=== PATIENT | female | born 1965 | race Caucasian/White ===

== ENCOUNTER 2018-06-20 17:24 | Observation (INO) | payer OTHER, SELFPAY ==
[2018-06-20 17:30] VITALS: BP 130/87; PULSE 76; RESP 18; O2SAT 98; BMI 51.5
[2018-06-20 18:02] LABS: Add Manual Diff / Slide Review NO; Basophils Percent Auto 1.1 % (0-2); Eosinophils Percent Auto 0.4 % (2-4); Hemoglobin 12.7 g/dL (12.0-16.0); Lymphocytes Percent Auto 19.1 % (25-40); Mean Corpuscular HGB Conc 34.2 % (30-36); Mean Corpuscular Hemoglobin 29.2 PG (26-34); Mean Corpuscular Volume 85.4 fL (80-100); Monocytes Percent Auto 7.5 % (3-14); Neutrophils Absolute Auto 7500 /uL (3000-5900); Neutrophils Percent Auto 71.9 % (50-75); Platelet Count 275 X10^3/uL (150-400); Red Blood Cell Count 4.34 X10^6/uL (4.0-5.2); Red Cell Distribution Width 14.1 % (11.6-14.8); White Blood Cell Count 10.4 X10^3/uL (4.5-11.0)
[2018-06-20 18:21] LABS: Alanine Aminotransferase 44 IU/L (9-52); Albumin 4.5 g/dL (3.5-5.0); Albumin Globulin Ratio 1.5 (1.0-2.8); Alkaline Phosphatase 99 U/L (38-126); Aspartate Aminotransferase 35 IU/L (14-36); BUN Creatinine Ratio 12.2 (6-22); Blood Urea Nitrogen 11 mg/dL (7-17); Calcium 9.4 mg/dL (8.4-10.2); Carbon Dioxide 26 mmol/L (22-32); Chloride 100 mmol/L (98-107); Estimated Glomerular Filt Rate > 60.0 mL/min (>60); Globulin 3.1 g/dL (1.7-4.1); Glucose 116 mg/dL (70-100); HEMOLYSIS 25 (0-50); Lipase 12 U/L (23-300); Potassium 3.9 mmol/L (3.4-5.1); Sodium 140 mmol/L (137-145); Total Protein 7.6 g/dL (6.3-8.2)
--- NOTE | 2018-06-20 18:28 | DI.CT.S_ITS ---
PROCEDURE: CT ABDOMEN PELVIS WO CON INDICATIONS: severe RLQ pain, with guarding TECHNIQUE: Noncontrast 5 mm thick sections acquired from the diaphragms to the symphysis. 5 mm coronal and sagittal reformats were then performed. For radiation dose reduction, the following was used: automated exposure control, adjustment of mA and/or kV according to patient size. COMPARISON: None. FINDINGS: Image quality: Excellent. ABDOMEN: Lung bases: Lung bases are clear. Heart size is normal. Solid organs: Liver is mildly enlarged in size and prominently fatty infiltrated as was previously the case. Gallbladder is been previously resected. Pancreas is normal in contours. Spleen is normal in size. No adrenal nodules. Kidneys are normal in size, without hydronephrosis or nephrolithiasis. Peritoneum and bowel: Unenhanced bowel loops demonstrate normal wall thickness and caliber. No free fluid or air. Nodes and vessels: No retroperitoneal or mesenteric adenopathy by size criteria. Aorta and inferior vena cava are normal in caliber. Miscellaneous: No ventral hernias. PELVIS: Genitourinary: Bladder wall thickness is normal. Miscellaneous: No inguinal hernias or adenopathy. At the right lower quadrant the appendix is abnormal, with increased dilatation when compared to the prior CT scan from 03/15/17 when the appendix had appeared normal. Its transverse dimension was 6 mm previously and now is 11 mm, in the same area. It previously had contain gas, and now is free of internal gas content. Additionally, most convincingly, is the presence of periappendiceal edema there is mild in overall severity but definite. An appendicolith is not seen. Mild thickening of the adjacent fascial layer of the peritoneum has developed with reference to the prior study when it had appeared normal. Bones: No suspicious bony lesions. No vertebral body compression fractures. IMPRESSION: Mild acute appendicitis without periappendiceal abscess. Prior cholecystectomy. Prominent fatty infiltration throughout the liver. Dictated by: Rc Eason M.D. on 06/20/2018 at 21:35 Approved by: Rc Eason M.D. on 06/20/2018 at 21:40
[2018-06-20] MEDS: ONDANSETRON 4 MG/2 ML INJ IV (18:43)
[2018-06-20] MEDS: HYDROMORPHONE 1 MG INJ 0.5 MG IV (18:44)
[2018-06-20] MEDS: SODIUM CHLORIDE 0.9% 1,000 ML 1000 ML IV (18:45)
[2018-06-20 18:54] VITALS: BP 123/80; PULSE 64; RESP 16; O2SAT 98
--- NOTE | 2018-06-20 18:58 | ED.ABDPAIN ---
HPI - Abdominal Pain General Chief Complaint: Abdominal Pain Stated Complaint: RIGHT LOWER ABDOMINAL PAIN Time Seen by Provider: 06/20/18 18:00 Source: patient and family Mode of arrival: ambulatory Limitations: no limitations History of Present Illness HPI narrative: 52-year-old female presents to the emergency department with significant other in the chief complaint of gradually worsening right lower quadrant pain since yesterday. Her symptoms started with generalized abdominal discomfort and nausea. Over the course of the day her pain has become much more intense and localized in her right lower quadrant. She has associated nausea and a decreased appetite. She has no measured fever but has perception of fever. Her pain is worse with motion and improves with rest. She last had solid foods at noon and had some tea at 3:00 p.m.. MD complaint: abdominal pain Onset (ago): day(s) Pain Consistency: constant Location: RLQ Severity: moderate Quality: cramping and stabbing Radiation: RLQ Migration to: no migration Relieving factors: rest Exacerbating factors: movement Associated symptoms: nausea and anorexia Related Data Home Medications Medication Instructions Recorded Confirmed atorvastatin 10 mg PO BEDTIME 06/21/18 06/21/18 bupropion HCl [Wellbutrin XL] 150 mg PO DAILY 06/21/18 06/21/18 cetirizine [Zyrtec] 10 mg PO DAILY 06/21/18 06/21/18 cholecalciferol (vitamin D3) 1,000 unit PO BID 06/21/18 06/21/18 [Vitamin D3] clonazepam [Klonopin] 0.5 mg PO BID PRN 06/21/18 06/21/18 duloxetine [Cymbalta] 60 mg PO DAILY 06/21/18 06/21/18 metoprolol succinate 50 mg PO DAILY 06/21/18 06/21/18 omeprazole magnesium [Prilosec OTC] 20 mg PO BID 06/21/18 06/21/18 pseudoephedrine HCl [Sudafed 12 120 mg PO Q12H 06/21/18 06/21/18 Hour] trazodone 100 mg PO DAILY 06/21/18 06/21/18 zolpidem 10 mg PO BEDTIME PRN 06/21/18 06/21/18 Allergies Allergy/AdvReac Type Severity Reaction Status Date / Time hydrocodone [HYDROCODONE] Allergy Unknown Swelling Verified 06/20/18 17:36 of Lip/Tongue/Throat sulfamethoxazole Allergy Unknown Swelling Verified 06/20/18 17:36 [From BACTRIM] of Lip/Tongue/Throat trimethoprim [From BACTRIM] Allergy Unknown Swelling Verified 06/20/18 17:36 of Lip/Tongue/Throat Review of Systems Review of Systems All systems reviewed & are unremarkable except as noted in HPI and below Constitutional Denies chills, Reports fever(s), Denies lethargy and Denies weakness Eyes Denies change in vision, Denies eye discharge, Denies irritation and Denies loss of vision ENT Ears, Nose, Mouth, and Throat: Denies change in voice, Denies neck pain and Denies sore throat Cardiovascular Denies chest pain, Denies irregular heart rhythm, Denies lightheadedness, Denies palpitations, Denies dyspnea, Denies dyspnea on exertion and Denies orthopnea Respiratory Denies cough, Denies dyspnea, Denies dyspnea on exertion and Denies wheezing Gastrointestinal Gastrointestinal: Reports abdominal pain, Denies change in bowel habits, Denies diarrhea, Reports nausea and Denies vomiting Genitourinary Denies hematuria, Denies flank pain, Denies urinary incontinence and Denies urinary urgency Musculoskeletal Denies neck pain Integumentary/Breasts Denies pruritus, Denies erythema, Denies rash and Denies wounds Neurologic Denies confusion, Denies loss of vision and Denies weakness Psychiatric Denies anxiety, Denies confusion, Denies depression, Denies homicidal ideation and Denies suicidal ideation Endocrine Denies palpitations Hematologic/Lymphatic Denies easy bruising Allergic/Immunologic Denies wheezing PFSH Social History Smoking Status: Former smoker Exam Narrative Exam Narrative: 52-year-old female appears unwell, clutching her right lower quadrant, obviously in pain Initial Vital Signs Initial Vital Signs: Vital Signs Pulse Rate 76 06/20/18 17:30 Respiratory Rate 18 06/20/18 17:30 Blood Pressure 130/87 H 06/20/18 17:30 Pulse Oximetry 98 06/20/18 17:30 Const General: cooperative, well developed and acute distress Nutritional Appearance: obese Orientation: alert, awake, oriented x3 and not confused HENMT Head: normocephalic and atraumatic Ears: external ears normal and TM's normal bilaterally Nose: external nose normal and No nasal discharge Face and sinus: sinuses nontender, face symmetric, no sinus tenderness and No dry mucous membranes Mouth: oral mucosae normal and moist mucous membranes Teeth and gingiva: dentition normal Throat: tonsils normal and uvula midline Neck Neck: normal visual inspection, trachea midline, No lymphadenopathy, No midline deformity and No JVD Lymphatic: No lymphedema Resp Effort & Inspection: normal respiratory effort, able to speak in complete sentences, no respiratory distress and no use of accessory muscles Auscultation: clear to auscultation bilaterally, no rales, no rhonchi and no wheezes GI Inspection: non-distended Palpation: soft, no hepatosplenomegaly, guarding, No pulsatile mass and tender Auscultation: normal bowel sounds Other: Positive Rovsing's, localized peritonitis and right lower quadrant, mild rebound Skin General: no rashes or lesions noted, No jaundice and No petechiae Neuro General: alert, oriented x3, gait normal and no focal motor deficits Speech: speech normal Extrem General: full ROM, no clubbing, cyanosis or edema, no pedal edema and no calf tenderness Course Decision to Admit Date: 06/20/18 Decision to Admit time: 21:40 Orders Ordered: ED Orders 06/20/18 17:55 Complete Blood Count AUTO DIFF Stat Comprehensive Metabolic Panel Stat Lipase Stat 06/20/18 18:28 CT abdomen pelvis wo con Stat Hydromorphone HCl (Dilaudid) 1 mg SUBCUT Q4H PRN PRN Reason: Pain, Severe (7-10) Last Admin: 06/20/18 23:07 Dose: 1 mg Admin: 06/20/18 21:18 Dose: 1 mg Sodium Chloride (Normal Saline 0.9%) 1,000 mls @ 150 mls/hr IV CONT WALKER Last Admin: 06/20/18 19:48 Dose: Not Given Discontinued Medications Hydromorphone HCl (Dilaudid) 0.5 mg IV NOW ONE Stop: 06/20/18 18:28 Last Admin: 06/20/18 18:44 Dose: 0.5 mg Sodium Chloride (Normal Saline 0.9%) 1,000 mls @ 1,000 mls/hr IV BOLUS ONE Stop: 06/20/18 19:26 Last Infusion: 06/20/18 21:20 Dose: 0 mls/hr Admin: 06/20/18 18:45 Dose: 1,000 mls/hr Ondansetron HCl (Zofran) 4 mg IV NOW ONE Stop: 06/20/18 18:28 Last Admin: 06/20/18 18:43 Dose: 4 mg Reevaluation(s) Reevaluation #1: Patient's pain is improved with subcu administration of Dilaudid. She has a very difficult IV stick and all nurses in department have attempted, our ultrasound trained nurse even made an attempt. She is not critically ill nor crashing and therefore not a candidate for a central line or IO. Decision to call the PICC team made after discussion with on-call surgeon whom states he will take to the OR tomorrow Consultations Consultation #1: Dr. Rodriguez will take to the OR tomorrow, recommend cefotetan 2 g Q 12, Zofran, Dilaudid GLOBAL PROCESS OWNER and lactated ringers at 125mL/hr Vital Signs - 8 hr 06/20/18 17:30 06/20/18 18:54 06/20/18 21:06 Temperature Pulse Rate 76 64 71 Respiratory Rate 18 16 18 Blood Pressure 130/87 H Blood Pressure [Right Arm] 123/80 H 116/64 Pulse Oximetry 98 98 97 06/20/18 22:05 06/21/18 00:19 Temperature 98.8 F 98.3 F Pulse Rate 61 Respiratory Rate 16 Blood Pressure Blood Pressure [Right Arm] 121/69 H Pulse Oximetry 97 MDM - Abdominal Pain Lab Data Result diagrams: 06/20/18 17:55 06/20/18 17:55 Lab Results 06/20/18 06/20/18 Range/Units 17:55 17:55 WBC 10.4 (4.5-11.0) X10^3/uL RBC 4.34 (4.0-5.2) X10^6/uL Hgb 12.7 (12.0-16.0) g/dL Hct 37.0 (36-46) % MCV 85.4 (80-100) fL MCH 29.2 (26-34) PG MCHC 34.2 (30-36) % RDW 14.1 (11.6-14.8) % Plt Count 275 (150-400) X10^3/uL Neut % (Auto) 71.9 (50-75) % Lymph % (Auto) 19.1 L (25-40) % [place] % (Auto) 7.5 (3-14) % Eos % (Auto) 0.4 L (2-4) % Baso % (Auto) 1.1 (0-2) % Neut # (Auto) 7500 H (1431-6776) /uL Sodium 140 (137-145) mmol/L Potassium 3.9 (3.4-5.1) mmol/L Chloride 100 (98-107) mmol/L Carbon Dioxide 26 (22-32) mmol/L BUN 11 (7-17) mg/dL Creatinine 0.90 (0.52-1.04) mg/dL Estimated GFR > 60.0 (>60) mL/min BUN/Creatinine Ratio 12.2 (6-22) Glucose 116 H (70-100) mg/dL Calcium 9.4 (8.4-10.2) mg/dL Total Bilirubin 1.0 (0.2-1.3) mg/dL AST 35 (14-36) IU/L ALT 44 (9-52) IU/L Alkaline Phosphatase 99 (38-126) U/L Total Protein 7.6 (6.3-8.2) g/dL Albumin 4.5 (3.5-5.0) g/dL Globulin 3.1 (1.7-4.1) g/dL Albumin/Globulin Ratio 1.5 (1.0-2.8) Lipase 12 L (23-300) U/L Discharge Plan Departure Patient Disposition: Admitted As Inpatient Clinical Impression: Acute appendicitis Interventions: ED Discharge Assessment Last Done: 06/20/18 23:02 Admit Date/Time: 06/20/18 23:58 Admit Provider: Armand Rodriguez
--- NOTE | 2018-06-20 20:15 | PC.NURSE ---
Qiana ROBLERO used ultrasound to try and get IV access per provider. Not successful. Provider aware that pt has no IV access . No new orders at this time. fluids paused. Pt appears in no acute distress at this time.
[2018-06-20 21:06] VITALS: BP 116/64; PULSE 71; RESP 18; O2SAT 97
[2018-06-20] MEDS: HYDROMORPHONE 2 MG INJ 1 MG SUBCUT ×2 (21:18→23:07)
--- NOTE | 2018-06-20 21:18 | PC.NURSE ---
confirmed dilaudid sub Q injection site with Deborah Chaudhary Rn
[2018-06-20 22:05] VITALS: TEMP 37.1
--- NOTE | 2018-06-20 22:20 | PC.NURSE ---
PICC TEAM CALLED. PER PROVIDER.
--- NOTE | 2018-06-20 23:02 | PC.NURSE ---
report given to chacho ROBLERO
[2018-06-21] VITALS (18 sets, daily range): BP systolic 100–135; BP diastolic 59–81; PULSE 60–76; RESP 9–19; TEMP 36.2–36.9; O2SAT 91–100; BMI 51.5; BMI 50.3
--- NOTE | 2018-06-21 | PATH_ITS ---
[facility] Accession Number: [id number] . 01 Material submitted: . APPENDIX . 02 Diagnosis: Appendix: Acute appendicitis. [facility]/06/23/2018 . 02 Electronically signed: . Gerald Domingo MD, Pathologist NPI- [id number] . 01 Gross description: . Received in formalin, labeled appendix, is an intact appendix (length-3.8 cm, diameter-1.3 cm) with ferreira-pink, smooth, shiny serosa with attached mesoappendix (up to 1.8 cm in depth). The resection margin is received stapled. The lumen contains red-brown, solid, soft material. The wall is up to 0.5 cm thick. No nodules, masses, or lesions are identified. The resection margin is inked black. Section code: (A1) resection margin en face and three additional business services representative serial sections; (A2) one-half of the bivalved tip. ([id number]) /FRR . 02 Pathologist provided ICD-10: K35.80 . 02 CPT . 202087 Performed at: 01 [facility] [address] [id number] MD Dandy Schuler MD Phone: [phone] Performed at: [facility] [address] [place], [place] [id number] MD Colby Sapp MD Phone: [phone]
--- NOTE | 2018-06-21 00:32 | PC.NURSE ---
RN here to place PICC.
[2018-06-21] MEDS: LACTATED RINGERS 1,000 ML 125 ML IV (02:18)
[2018-06-21] MEDS: CEFOTETAN 2 GM/50 ML PIGGYBACK IV (02:35)
[2018-06-21] MEDS: HYDROMORPHONE PCA 6 MG/30 ML PCA.VIAL IV (06:45)
--- NOTE | 2018-06-21 07:56 | PM.HP.1 ---
History of Present Illness Date Patient Seen: 06/21/18 Time Patient Seen: 05:56 Chief complaint: RIGHT LOWER ABDOMINAL PAIN Narrative: 52-year-old morbidly obese female who presented the emergency department with a 48 hr history of progressive abdominal pain initially located diffusely but then later localized to the right lower quadrant. She is currently complaining of focal right lower quadrant abdominal pain that is described as sharp but nonradiating. Pain is essentially unrelenting but is currently relieved with Dilaudid GRADALL OPERATOR. Denies subjective fever or chills. No nausea or vomiting but she has been anorexic since onset of her symptoms. No dysuria. She has had no change in her bowel habits otherwise reports a normal stool just prior to the onset of her symptoms. She is currently passing flatus without issues. Her pain has become more severe in the last 12 hr or so with exacerbation during activity of any type, including ambulation. Patient History Medical History Anxiety disorder (Acute) Atrial fibrillation with controlled ventricular response (Acute) Depression determined by examination (Acute) Essential hypertension (Acute) H/O gastroesophageal reflux (GERD) (Acute) History of cholelithiasis (Acute) Morbid obesity with BMI of 50.0-59.9, adult (Acute) Obstructive sleep apnea on CPAP (Acute) Osteoarthritis involving multiple joints on both sides of body (Acute) Surgical History Status post laparoscopic Katerin fundoplication (Acute) Status post laparoscopic cholecystectomy (Acute) Status post right rotator cuff repair (Acute) Status post total bilateral knee replacement (Acute) Family & Social History Family History: Reviewed 06/21/18 by Armand Rodriguez MD Social History: household members spouse Prior Living Arrangements House Safety & Behavioral: Feels Safe in Current Yes Environment Been Physically Hurt or No Threatened By a Person Suicidal Ideation Description None Suicide Plan Description No Plan Tobacco & Substance use: Smoking Status Former smoker alcohol intake frequency holiday/special occasion Substance Use Type does not use Meds Home Medications Medication Instructions Recorded Confirmed Type atorvastatin 10 mg PO BEDTIME 06/21/18 06/21/18 History bupropion HCl [Wellbutrin XL] 150 mg PO DAILY 06/21/18 06/21/18 History cetirizine [Zyrtec] 10 mg PO DAILY 06/21/18 06/21/18 History cholecalciferol (vitamin D3) 1,000 unit PO BID 06/21/18 06/21/18 History [Vitamin D3] clonazepam [Klonopin] 0.5 mg PO BID PRN 06/21/18 06/21/18 History duloxetine [Cymbalta] 60 mg PO DAILY 06/21/18 06/21/18 History metoprolol succinate 50 mg PO DAILY 06/21/18 06/21/18 History omeprazole magnesium [Prilosec OTC] 20 mg PO BID 06/21/18 06/21/18 History pseudoephedrine HCl [Sudafed 12 120 mg PO Q12H 06/21/18 06/21/18 History Hour] trazodone 100 mg PO DAILY 06/21/18 06/21/18 History zolpidem 10 mg PO BEDTIME PRN 06/21/18 06/21/18 History Allergies Allergy/AdvReac Type Severity Reaction Status Date / Time hydrocodone [HYDROCODONE] Allergy Unknown Swelling Verified 06/20/18 17:36 of Lip/Tongue/Throat sulfamethoxazole Allergy Unknown Swelling Verified 06/20/18 17:36 [From BACTRIM] of Lip/Tongue/Throat trimethoprim [From BACTRIM] Allergy Unknown Swelling Verified 06/20/18 17:36 of Lip/Tongue/Throat Review of Systems Review of Systems All systems reviewed & are unremarkable except as noted in HPI and below Exam Vital Signs (past 8 hours): - 06/21/18 00:19 06/21/18 02:00 06/21/18 07:19 Temperature 98.3 F 97.1 F L 98.1 F Pulse Rate 61 60 64 Respiratory Rate 16 16 16 Blood Pressure 118/70 100/63 Blood Pressure [Right Arm] 121/69 H Pulse Oximetry 97 95 93 Oxygen Delivery Method Room Air Narrative Exam Narrative: obese female lying in bed in no acute distress. Alert oriented x3. Family is at the bedside. Afebrile since admission. Blood pressure and heart rate are normal. irregular rhythm clear to auscultation Abdomen is obese but soft and nondistended. However, she is focally tender at McBurney's point with obvious guarding. No masses. No Rovsing sign. She is nontender elsewhere in the abdomen. Extremities show no clubbing or cyanosis Objective Labs Result Diagrams: 06/20/18 17:55 06/20/18 17:55 Labs: Laboratory Results - last 24 hr 06/20/18 06/20/18 17:55 17:55 WBC 10.4 RBC 4.34 Hgb 12.7 Hct 37.0 MCV 85.4 MCH 29.2 MCHC 34.2 RDW 14.1 Plt Count 275 Neut % (Auto) 71.9 Lymph % (Auto) 19.1 L [place] % (Auto) 7.5 Eos % (Auto) 0.4 L Baso % (Auto) 1.1 Neut # (Auto) 7500 H Sodium 140 Potassium 3.9 Chloride 100 Carbon Dioxide 26 BUN 11 Creatinine 0.90 Estimated GFR > 60.0 BUN/Creatinine Ratio 12.2 Glucose 116 H Calcium 9.4 Total Bilirubin 1.0 AST 35 ALT 44 Alkaline Phosphatase 99 Total Protein 7.6 Albumin 4.5 Globulin 3.1 Albumin/Globulin Ratio 1.5 Lipase 12 L I have personally reviewed her CT scan of the abdomen pelvis done in the emergency department. No free fluid. No free air. No lymphadenopathy or masses. Appendix is enlarged to 1.1 cm with surrounding mild inflammation. Assessment & Plan Plan: Assessment/Plan Narrative: 52-year-old female with acute appendicitis by examination, history, and radiographic criteria. I discussed my impression findings with the patient and her family in detail. I recommend laparoscopic appendectomy later this morning. Technical details of the operation were discussed. Anticipated hospitalization and recovery times along with wound healing times were also reviewed. Risks, benefits, alternatives were explained. Risks including but not limited to anesthesia, bleeding, infection, abscess, pain, need for drains, need to convert open procedure, poor wound healing, normal appendix, bladder injury, colon injury, appendiceal stump leak, small-bowel injury, right ureter injury, and need for further major abdominal surgery were all discussed in detail. All questions were answered to her satisfaction, and she voiced understanding. Consent was placed on the chart. We will proceed as above. Quality VTE Deep Vein Thrombosis/Pulmonary Embolism Present on Admission: No
--- NOTE | 2018-06-21 08:25 | PC.NURSE ---
Pt taken to OR
[2018-06-21] MEDS: LACTATED RINGERS 1,000 ML 42 ML IV (08:30)
--- NOTE | 2018-06-21 09:32 | PM.PREOP ---
Pre-operative Note Interval Note Pre-op Check: Yes History & Physical Reviewed by Physician, Yes Exam Performed and Yes History & Physical exam performed today by Physician Changes: No H&P completed within 30 days and has changed as indicated here:: Patient seen and examined earlier this morning. History physical examination is documented and placed on the chart today. No changes since this morning. Proceed with laparoscopic appendectomy as planned.
[2018-06-21] MEDS: CEFOTETAN 1 GM/50 ML PIGGYBACK IV (10:10)
--- NOTE | 2018-06-21 10:24 | SUR.OPER ---
Supine on padded OR bed, head on pillow, arms secured on padded arm boards at <90 degrees abduction, legs uncrossed, safety belt at thigh, tape over blanket over lower legs.
[2018-06-21] MEDS: LIDOCAINE 1% W/EPI INJ 20 ML INJ (10:34)
[2018-06-21] MEDS: fentaNYL 100 MCG/2 ML INJ 50 MCG IV (11:34)
[2018-06-21] MEDS: ONDANSETRON 4 MG/2 ML INJ IV ×2 (11:35→21:10)
--- NOTE | 2018-06-21 11:37 | P.OP_ITS ---
Operative Date/Time/Diagnoses Date of procedure: 06/21/18 Time of procedure: 11:30 Pre-op diagnosis: acute appendicitis Post-op diagnosis: same Procedure & Clinicians Procedure: laparoscopic appendectomy Same procedure as scheduled: Yes Indications: 52-year-old morbidly obese female who presented with progressive right lower quadrant abdominal pain. Examination and evaluation were consistent with acute appendicitis. Laparoscopic appendectomy was recommended. Surgeon: Armand Rodriguez Click Yes if Unassisted: Yes Anesthesia Type: General Operative Notes Findings: 1. adhesions from the cecum and ascending colon to the right lateral abdominal wall consistent with prior inflammatory process 2. Mildly inflamed and thickened appendix 3. mild hepatomegaly consistent with fatty infiltration of the liver 4. No evidence of free fluid or abscess 5. otherwise grossly normal appearing small bowel, omentum, and colon within the limits of laparoscopic visualization Closure Type: primary Specimen(s): other ( appendix) Implants & Drains: none Applied: catheter ( Villalobos catheter to decompress the urinary bladder removed at end of case) Estimated Blood Loss (mL): 30 Blood products transfused: none Procedure in detail: after obtaining informed consent the patient was brought to the operating room and placed supine on the table. After satisfactory induction of anesthesia a Villalobos catheter was inserted to decompress the urinary bladder. Abdomen was prepped and draped in usual sterile fashion. A SCOAP time -out was performed per standard protocol. Combination of 1% lidocaine with 1 100,000 epinephrine and 0.5% plain Marcaine was injected in the skin and subcutaneous tissue at the planned incision sites for postoperative analgesia. Attention was initially turned to placement of a trocar at the supraumbilical region where a vertical midline incision for a distance of approximately 3 cm was created with 11 scalpel blade. Blunt dissection revealed the rectus fascia which was divided in the midline with 11. Scalpel blade. Cristian clamps were used to secure the fascia bilaterally and elevated into the operative field. Two individual interrupted 0 Vicryl sutures were placed superiorly and inferiorly to secure the fascia. Underlying peritoneum was visualized and entered bluntly with a Viky clamp. Blunt 12 mm Bautista trocar was then inserted and a carbon dioxide pneumoperitoneum was created. Abdomen was visually explored with a 30 degree 5 mm laparoscoped. Findings are as above. Under direct laparoscopic visualization 2 individual 5 mm trocars were placed. One was placed in the right lower quadrant and the other in the right upper quadrant region. Sven graspers were used to manipulate the bowel after rotating the patient slightly to her left. Adhesions along the cecum and ascending colon were taken down sharply with scissors. Hemostasis was verified. The base of the appendix was then identified in a somewhat retrocecal position. Appendix was then also identified and elevated into the operative field after blunt dissection with the graspers. [place] dissector was employed to create an avascular window between the base of the appendix and mesoappendix along the junction of the appendix at the cecum. Endo-REHANA 45 mm stapler with tissue load was then placed across the base of the appendix and applied to divide the appendix at that level. A 2nd application of the endoscopic stapler using a vascular load was applied to divide the mesoappendix. Specimen was placed in an endo-pouch and retrieved through the umbilical port site and sent for permanent section. Previously applied staple lines were then meticulously examined laparoscopically and noted to be hemostatic. No evidence of leakage at the cecum. I should note that during the application of the staple device each time great care was taken to avoid injury to adjacent structures in the area was meticulously examined prior to deploying the hilda. Right lower quadrant was irrigated with copious amounts of sterile saline solution and suction from the abdomen. Irrigant was noted to be clear. Hemostasis was once again noted. Staple lines were again examined and noted to be intact with no leakage or hemorrhage. No other pathology was identified as above. Therefore instruments and trocars were removed under direct visualization. Hemostasis was verified. Carbon dioxide was evacuated. Fascia at the umbilical site was closed with the previously placed 0 Vicryl sutures. Skin at all 3 incisions was then closed in a subcuticular fashion with running 4 0 Monocryl suture. Dermal adhesive was applied to the skin. Anesthesia was reversed and the patient extubated in the operating room. She was taken recovery in stable condition. Complications: none Condition: stable Disposition: PACU Plan for aftercare: 1. return to surgical floor for ongoing convalescence
[2018-06-21] MEDS: METOPROLOL ER 50 MG TABLET PO (13:49)
[2018-06-21] MEDS: DULOXETINE 30 MG CAPSULE 60 MG PO (13:50)
[2018-06-21] MEDS: OXYCODONE IR 5 MG TABLET PO ×2 (13:50→18:06)
[2018-06-21] MEDS: buPROPion XL 150 MG TAB PO (13:50)
[2018-06-21] MEDS: LACTATED RINGERS 1,000 ML 84 ML IV (13:51)
--- NOTE | 2018-06-21 14:14 | PC.NURSE ---
Pt back from OR 1330, alert, oriented rates pain to right upper abdomen 5/10, given 5mg oxycodone. Reports slight nausea. No antiemetic given at this time, medicated in the PACU. Scd's on, spouse at bedside.
--- NOTE | 2018-06-21 14:26 | CM.DANOTE ---
DCP/Assessment: Reviewed chart. Patient is a 52yr old female admitted under OBS status with abd pain. Patient underwent appendectomy today. PCP listed is SANA Joyce. Primary payor is 1)[facility]. Met with patient and significant other/Catie at bedside explained CM/SW role. Patient known to [employer] because she is employed at [employer]. Patient reports that she is completely I in all ADL's. Patient hopes to go home tomorrow. At this time there are no identified d/c planning needs. P: Home with supportive spouse when medically stable. MIRIAM Beverly
[2018-06-21] MEDS: ACETAMINOPHEN 325 MG TABLET 650 MG PO (18:10)
[2018-06-21] MEDS: ATORVASTATIN 10 MG TABLET PO (21:10)
[2018-06-21] MEDS: CHOLECALCIFEROL (VITAMIN D3) 1,000 UNIT TABLET 1000 UNIT PO (21:10)
[2018-06-21] MEDS: OXYCODONE IR 10 MG TABLET PO (21:23)
[2018-06-22] MEDS: LACTATED RINGERS 1,000 ML 84 ML IV (01:40)
[2018-06-22] MEDS: OXYCODONE IR 10 MG TABLET PO ×2 (02:17→07:55)
[2018-06-22 06:54] VITALS: BP 110/66; PULSE 62; RESP 16; TEMP 36.8; O2SAT 100
[2018-06-22] MEDS: buPROPion XL 150 MG TAB PO (07:53)
[2018-06-22] MEDS: PANTOPRAZOLE 20 MG TABLET PO ×2 (07:54→21:26)
[2018-06-22] MEDS: CHOLECALCIFEROL (VITAMIN D3) 1,000 UNIT TABLET 1000 UNIT PO ×2 (07:54→21:26)
[2018-06-22] MEDS: DULOXETINE 30 MG CAPSULE 60 MG PO (07:54)
[2018-06-22] MEDS: METOPROLOL ER 50 MG TABLET PO (07:54)
[2018-06-22] MEDS: LORATADINE 10 MG TABLET PO (07:54)
[2018-06-22 09:30] VITALS: BP 124/67; PULSE 66; RESP 16; O2SAT 95
--- NOTE | 2018-06-22 13:16 | PM.PN.1 ---
Subjective Date Patient Seen: 06/22/18 Time Patient Seen: 13:16 Interval history: Patient complaining of incisional pain at the umbilicus. No significant issues with her other incisions. Pain is not particularly controlled at the moment despite oxycodone. She is not nauseated or vomiting. Passing flatus but no bowel movement. Denies any dysuria. She has had spontaneous return of bladder function. Her preoperative pain in the right lower abdomen has completely resolved. Denies any subjective fever or chills. No chest pain or shortness of breath. She is ambulating without difficulty. Appetite is somewhat poor which she feels may be related to pain medicine and her discomfort. However, she is tolerating full liquids without any issues. Exam Vital Signs (past 8 hours): - 06/22/18 06:54 06/22/18 09:30 Temperature 98.3 F Pulse Rate 62 66 Respiratory Rate 16 16 Blood Pressure 110/66 124/67 H Pulse Oximetry 100 95 Oxygen Delivery Method Room Air Oxygen Flow Rate 0 Narrative Exam Narrative: Well-nourished well-developed moderately obese female in no acute distress sitting comfortably in bedside chair. Family is at the bedside. Patient is alert oriented x3. Abdomen is soft and nondistended. She is appropriately tender at the incisions without guarding or rebound. Her right lower quadrant tenderness has completely resolved. Incisions are clean, dry, and intact without erythema, ecchymosis, hematoma, or seroma. No evidence of incisional hernia at the umbilicus. Objective Labs Result Diagrams: 06/20/18 17:55 06/20/18 17:55 Labs: No new laboratory or radiographic studies for review Assessment & Plan Plan: Assessment/Plan Narrative: 52-year-old female postoperative day 1 from laparoscopic appendectomy for acute appendicitis who is overall doing well, but her analgesia remains an issue. I therefore will change her oxycodone to oral Dilaudid. Administer a single dose of Toradol. Saline lock the IV. Discontinue antibiotics which she has now completed. Continue diet as tolerated. Ambulate aggressively. She may shower today. Once her pain is under better control she may be discharged home, possibly later this afternoon. I discussed this with her and she was agreeable to such. All questions were answered to her satisfaction, and she voiced understanding. Orders were written. Quality VTE Deep Vein Thrombosis/Pulmonary Embolism Present on Admission: No
[2018-06-22] MEDS: HYDROMORPHONE 2 MG TABLET PO ×4 (13:42→22:43)
[2018-06-22] MEDS: KETOROLAC 30 MG/ML VIAL IV (14:04)
[2018-06-22 15:45] VITALS: BP 107/63; PULSE 60; RESP 16; TEMP 36.8; O2SAT 97
[2018-06-22] MEDS: ONDANSETRON 4 MG/2 ML INJ IV (16:46)
[2018-06-22 20:03] VITALS: BP 125/69; PULSE 66; RESP 15; TEMP 36.6; O2SAT 93
[2018-06-22] MEDS: SODIUM CHLORIDE 0.9% FLUSH 10 ML IV (21:25)
[2018-06-22] MEDS: TRAZODONE 100 MG TABLET PO (21:26)
[2018-06-22] MEDS: ATORVASTATIN 10 MG TABLET PO (21:26)
[2018-06-23 00:16] VITALS: BP 122/66; PULSE 68; RESP 20; TEMP 36.7; O2SAT 95
[2018-06-23 04:52] VITALS: BP 119/71; PULSE 69; RESP 18; TEMP 36.7; O2SAT 98
[2018-06-23] MEDS: HYDROMORPHONE 2 MG TABLET PO ×2 (05:45→09:06)
[2018-06-23 07:37] VITALS: BP 127/75; PULSE 65; RESP 16; O2SAT 94
[2018-06-23 08:38] VITALS: TEMP 36.8
[2018-06-23] MEDS: PANTOPRAZOLE 20 MG TABLET PO (09:02)
[2018-06-23] MEDS: METOPROLOL ER 50 MG TABLET PO (09:02)
[2018-06-23] MEDS: CHOLECALCIFEROL (VITAMIN D3) 1,000 UNIT TABLET 1000 UNIT PO (09:03)
[2018-06-23] MEDS: DULOXETINE 30 MG CAPSULE 60 MG PO (09:03)
[2018-06-23] MEDS: buPROPion XL 150 MG TAB PO (09:03)
[2018-06-23] MEDS: LORATADINE 10 MG TABLET PO (09:03)
--- NOTE | 2018-06-23 10:34 | PM.DS.1 ---
History of Present Illness Date Patient Seen: 06/23/18 Time Patient Seen: 10:35 Chief complaint: RIGHT LOWER ABDOMINAL PAIN Narrative: 52-year-old morbidly obese female who presented the emergency department with a 48 hr history of progressive abdominal pain initially located diffusely but then later localized to the right lower quadrant. She is currently complaining of focal right lower quadrant abdominal pain that is described as sharp but nonradiating. Pain is essentially unrelenting but is currently relieved with Dilaudid [employer]. Denies subjective fever or chills. No nausea or vomiting but she has been anorexic since onset of her symptoms. No dysuria. She has had no change in her bowel habits otherwise reports a normal stool just prior to the onset of her symptoms. She is currently passing flatus without issues. Her pain has become more severe in the last 12 hr or so with exacerbation during activity of any type, including ambulation. Discharge Providers Date of admission: 06/20/18 23:58 Primary care physician: Mely Rodriges PA-C Consults: 06/21/18 08:47 Consult to Respiratory Therapy Evaluate & Treat Comment: Physician Instructions: Evaluate and treat Discharge provider: Armand Rodriguez MD Summary Discharge Diagnosis: Acute appendicitis Laparoscopic appendectomy June 21, 2018 Anxiety disorder (Acute) Atrial fibrillation with controlled ventricular response (Acute) Depression determined by examination (Acute) Essential hypertension (Acute) H/O gastroesophageal reflux (GERD) (Acute) History of cholelithiasis (Acute) Morbid obesity with BMI of 50.0-59.9, adult (Acute) Obstructive sleep apnea on CPAP (Acute) Osteoarthritis involving multiple joints on both sides of body (Acute) Status post laparoscopic Katerin fundoplication (Acute) Status post laparoscopic cholecystectomy (Acute) Status post right rotator cuff repair (Acute) Status post total bilateral knee replacement (Acute) Hospital Course: Patient presented to the emergency department with 2 day history of progressive abdominal pain. Pain eventually localized to right lower quadrant was quite sharp and unrelenting in nature. Examination and evaluation including CT scan were consistent with acute appendicitis. Patient was taken to the operating room several hours after admission for laparoscopic appendectomy which she tolerated well. Postoperatively she was admitted to the regular surgical floor where she remained afebrile and hemodynamically stable. Her wounds were healing nicely without evidence of infection or other issues. She had spontaneous return of bowel bladder function. However, her analgesia was somewhat suboptimal and she required intravenous narcotic medications as well as Toradol which eventually controlled her pain adequately. She was subsequently converted to only oral analgesics consisting of hydromorphone which she tolerated well. Pain was adequately controlled. She is ambulating without difficulty. She is tolerating a diet although her appetite remained somewhat diminished. No nausea or vomiting. Because her pain is now controlled with oral analgesics and she is otherwise stable she will be discharged home on postoperative day 2. Follow-up in the surgery clinic in 2 weeks. However, she has clearly been counseled to call or return sooner for fever, chills, persistent nausea and vomiting, progressive abdominal pain, wound drainage, or other concerns. Status at Discharge Cognitive/behavioral status at discharge: Alert oriented x3. Functional status at discharge: independent ambulation Overall status at discharge: patient is progressing back to baseline Time Spent with Patient Less than 30 minutes Exam Vital Signs (past 8 hours): - 06/23/18 04:52 06/23/18 07:37 06/23/18 08:38 Temperature 98.0 F 98.2 F Pulse Rate 69 65 Respiratory Rate 18 16 Blood Pressure 119/71 127/75 H Pulse Oximetry 98 94 Oxygen Delivery Method Room Air Oxygen Flow Rate 0 Narrative Exam Narrative: Well-nourished well-developed obese female lying comfortably in bed in no acute distress. Alert oriented x3 Sclera nonicteric Neck supple Chest clear to auscultation bilaterally Abdomen obese but soft and nondistended. She is appropriately tender at the umbilical incision but no guarding or rebound. Incisions are clean, dry, and intact. No evidence of early incisional hernias. Extremities show no clubbing or cyanosis Objective Labs Result Diagrams: 06/20/18 17:55 06/20/18 17:55 Labs: No new radiographic studies for review since admission Discharge Plan Discharge Plan Patient Disposition: Home Provider Discharge Instructions Diet: Diet as Tolerated Activity: May shower No dressing necessary Do not submerge incisions in tub or pool for 2 weeks May walk as much as desired May climb stairs May ride in vehicle No driving while taking opioid pain medication No lifting more than 20 lb for 2 weeks Cold/Heat Therapy: May apply ice pack to incisions as needed for comfort Skin/Wound/Dressing Care Report to your healthcare provider any signs of infection, such as:: chills, fever, increased pain and unusual drainage Dressing: None necessary Discharge Data Primary Care Provider: Mely Rodriges Attending Provider: Armand Rodriguez Admit Date/Time: 06/20/18 23:58 Quality VTE Deep Vein Thrombosis/Pulmonary Embolism Present on Admission: No
--- NOTE | 2018-06-23 11:23 | CM.DANOTE ---
06/23 1120: Pt A&Ox4, pain stated to be controlled on current prn regimen, VSS, stated decreased appetite but otherwise denied GI symptoms beyond incision pain/discomfort. Able to safely ambulate in room without assistance and verbalized readiness to discharge. Midline removed per protocol, dressing instructions provided, education about surgery discharge instructions and signs and symptoms of stroke, verbalized understanding. present with discharge instruction, wheel chaired down to ER entrance, safely into car with in private vehicle.
== END 2018-06-23 11:36 | disposition home or self-care (01) ==
LOC: ED 23:39 → AC 06-21 07:12
PROVIDERS: Admitting Provider Surgery; Emergency Provider Emergency Medicine; PCP Physician Assistant; Visit Provider Surgery
PROC: 0DTJ4ZZ Resection of Appendix, Percutaneous Endoscopic Approach (ICD-10-PCS; CPT 44970; principal; 2018-06-21 14:45)
DX: K35.80 Unspecified acute appendicitis (principal); R16.0 Hepatomegaly, not elsewhere classified; K66.0 Peritoneal adhesions (postprocedural) (postinfection); E66.01 Morbid (severe) obesity due to excess calories; I48.91 Unspecified atrial fibrillation; F41.9 Anxiety disorder, unspecified; I10 Essential (primary) hypertension; G47.33 Obstructive sleep apnea (adult) (pediatric); Z87.891 Personal history of nicotine dependence
CPT/HCPCS: 44970; 36591; 74176; 80053; 83690; 85025; 96361; 96372; 96374; 96376; 99220; 99283; 99285; G0378; J1170; J1885; J2405; J3010

== ENCOUNTER 2018-08-03 15:15 | Outpatient (RCR) | payer OTHER, SELFPAY ==
[2018-06-23 10:46] VITALS: BMI 51.5
--- NOTE | 2018-07-14 17:32 | PT.OIE ---
Current Diagnoses Impingement syndrome of right shoulder (07/14/18) Past Medical History (Last Updated 06/21/18 @ 08:01 by Armand Rodriguez MD) Anxiety disorder (Acute) Atrial fibrillation with controlled ventricular response (Acute) Depression determined by examination (Acute) Essential hypertension (Acute) H/O gastroesophageal reflux (GERD) (Acute) History of cholelithiasis (Acute) Morbid obesity with BMI of 50.0-59.9, adult (Acute) Obstructive sleep apnea on CPAP (Acute) Osteoarthritis involving multiple joints on both sides of body (Acute) Past Surgical History (Last Updated 06/21/18 @ 08:01 by Armand Rodriguez MD) Status post laparoscopic Katerin fundoplication (Acute) Status post laparoscopic cholecystectomy (Acute) Status post right rotator cuff repair (Acute) Status post total bilateral knee replacement (Acute) Provider Visit Care Team Role Provider Type Mely Rodriges PA-C Primary Care Provider [employer] Specialty: Internal Medicine Address: [address] [place] [address], [facility] Email: Zach Casanova MD Attending Provider Physician Specialty: Orthopedic Surgery Address: [address] [place] [address], [facility] Email: [email or web address] Physical Therapy Initial Evaluation PT-OP-A Visit Information Start: 07/14/18 15:09 Freq: Status: Active Protocol: Document 07/14/18 15:10 EA (Rec: 07/14/18 15:11 EA [id number]) Out-Patient Physical Therapy Visit Information Visit Information Visit Type Initial Evaluation Visit Start Time 14:30 Visit Stop Time 15:05 Visit Number 35 Evaluation Information Evaluation Date 07/14/18 PT-OP-B Current Condition Start: 07/14/18 15:09 Freq: Status: Active Protocol: Document 07/14/18 15:10 EA (Rec: 07/14/18 15:11 EA [id number]) Current Condition History of Current Condition Onset Date 4 months ago Current Complaints Right shoulder pain History of Current Condition Patient reports current right shoulder condition started 4 months ago while reaching for the alarm clock in left sidelying position. Patient reports localized shoulder pain gradually developed and increased in the span of 3 months and that made to see her doctor. 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 No significant history of shoulder injury recently. Prior Treatments and Tests None identified. To follow up next visit Future Testing and Treatments Planned None identified. To follow up next visit Treatment Goals Patient/Caregiver Goals Eliminate pain Prior Functional Status Baseline Function- ADL's Independent Baseline Function- Mobility Independent Baseline Function- Work/School No shoulder limitation at home and work. Current Functional Impairments (Reported) Functional Limitations- ADL's Limited with overhead and across the body movement. Functional Limitations- Work/School Limited with shoulder overhead movement and dependent position Personal Factors Other Personal Factors That May Effect Previous history of shoulder Therapy/Recovery surgery PT-OP-C Subjective Start: 07/14/18 15:09 Freq: Status: Active Protocol: Document 07/14/18 16:39 EA (Rec: 07/14/18 17:09 EA [id number]) OP-PT Subjective Patient Comments Patient Comments Pt c/o localized right shoulder pain with arm overhead, accross the body and reaching backward movement rated 7/10 at worst and 4/10 at best. Patient Reported Progress Same Patient Questionnaires Quick Dash- Upper Extremity Quick Dash UE Score 14 Quick Dash UE Impairment 1 to 19% Impaired (Score 1-19) OP-PT Pain Assessment Pain Assessment Grid Paper Pain Assessment Grid Completed Yes Location Right Posterior Shoulder Pain Location Details Right anterolat and posterior right shoulder Intensity 7 Description Sharp Tender Throbbing Frequency Intermittent Pain Aggravating Factors Position Activity Lifting Patient Stated Pain Goal 0 Home Pain Medication Use Pain Medications Used None identified Pain Behaviors Pain Behaviors Facial Grimacing PT-OP-E Functional Tests Start: 07/14/18 15:09 Freq: Status: Active Protocol: Document 07/14/18 16:39 EA (Rec: 07/14/18 17:09 EA [id number]) Functional Tests Apley's Scratch Test Action 1: The subject is instructed to touch the opposite shoulder with his/her hand. This motion checks Glenohumeral adduction, internal rotation , horizontal adduction and scapular protraction Action 2: The subject is instructed to place his/her arm overhead and reach behind the neck to touch his/her upper back. This motion checks Glenohumeral abduction, external rotation and scapular upward rotation and elevation. Action 3: The subject puts his/her hand on the lower back and reaches upward as far as possible. This motion checks glenohumeral adduction, internal rotation and scapular retraction with downward rotation Action 1- Left C7 Action 1- Right acromion process of left shoulder Action 2- Left T2 Action 2- Right C7 Action 3- Left T8 Action 3- Right L1 PT-OP-F Manual Assessment Start: 07/14/18 15:09 Freq: Status: Active Protocol: Document 07/14/18 16:39 EA (Rec: 07/14/18 17:09 EA [id number]) Manual Assessments Soft Tissue Assessment Soft Tissue Mobility Assessment Tight shoulder adductors Joint Mobility Assessment Joint Mobility Assessment No signs of joint hypomobility PT-OP-J Posture/Palpation/Skin Start: 07/14/18 15:09 Freq: Status: Active Protocol: Document 07/14/18 16:39 EA (Rec: 07/14/18 17:09 EA [id number]) Posture Evaluation Position Standing Evaluation View Lateral Shoulder Posture Neutral Palpation Assessment Location One Palpation Location Right shoulder Palpation Findings Muscle Guarding Tenderness Palpation Details Grade 2 tenderness: Right lateral scapular angle and ethel lateral shoulder PT-OP-K Range of Motion Start: 07/14/18 15:09 Freq: Status: Active Protocol: Document 07/14/18 16:39 EA (Rec: 07/14/18 17:09 EA [id number]) Shoulder Goniometric Range of Motion Shoulder Measured in Degrees Right Shoulder ROM WFL Yes Testing Position Supine Flexion 170 Extension 60 Abduction 90 External Rotation at 90 degrees 75 Abduction External Rotation at 45 degrees 60 Abduction PT-OP-L Special Tests Start: 07/14/18 15:09 Freq: Status: Active Protocol: Document 07/14/18 16:39 EA (Rec: 07/14/18 17:09 EA [id number]) Special Tests Shoulder Special Tests Speed's Biceps Test Results - Yergason's Biceps Test Results - Elevation Impingement Test Results + IR/Horizontal ADD Impingement Test Results + Empty Can Test Results + Irizarry Solitario Impingement Test Results - Belly Press Test Results - Lift-Off Rotator Cuff Test Results + PT-OP-M Strength Start: 07/14/18 15:09 Freq: Status: Active Protocol: Document 07/14/18 16:39 EA (Rec: 07/14/18 17:09 EA [id number]) Shoulder Strength Shoulder Manual Muscle Testing Right Flexion 3+ Fair+ Extension 5 Normal Abduction (C5) 3+ Fair+ External Rotation 3+ Fair+ Internal Rotation 3+ Fair+ Horizontal Abduction 4 Good PT-OP-Q Treatments Start: 07/14/18 15:09 Freq: Status: Active Protocol: Document 07/14/18 16:39 EA (Rec: 07/14/18 17:09 EA [id number]) Self-Care/Home Management Treatment Education Patient Education Home Exercise Program Pain Management Posture Other Education Discussed bed positioning and home pain management PT-OP-T Assessment and Plan Start: 07/14/18 15:09 Freq: Status: Active Protocol: Document 07/14/18 16:39 EA (Rec: 07/14/18 17:09 EA [id number]) Physical Therapy Assessment Rehab Potential Rehabilitation Potential Good Evaluation Complexity Number of Personal Factors/Comorbidities 3 or More Number of Body Systems Impaired 1-2 Clinical Presentation at Evaluation Evolving Impairments Impairments Activity Tolerance Functional Activities Pain ROM Strength Goals Four Impairment Quick Dash score of 20% impaired In Store Representative Goal (LTG) Patient will have quickDash score of 5% impaired. LTG Duration 4 wks Three Impairment Reported PS of 7/10 at worst Mcc Goal (LTG) Patient will reports pain at worst of 2/10 LTG Duration 4 wks Two Impairment Impaired right shoulder strength In Store Representative Goal (LTG) Patient will increase right shoulder ABD/ER/IR strength by 1/2 grade for functional mobility. LTG Duration 4 wks One Impairment Impaired R shoulder ROM Mcc Goal (LTG) Patient will exhibit normal right shoulder ROM without pain in all direction to enable perform daily task. LTG Duration 4 wks Assessment Summary Assessment Pleasant 52 y/o F patient with a previous history of rotator cuff repair 20 years ago. Today patient presented with shoulder impingement with probable rotator cuff tendon involvement. Test reveals positive with Empty can's, Lift off test, pain increased with resisted shoulder internal rotation and passive end range external rotation. Long head of biceps test reveals negative. Tender to palpate at anterolat joint, posterior shoulder and lateral angle of right scapula. Strength into ABD/Flexion and shoulder ER reveals 3+/5. Due to patient shoulder dysfunction, patient tolerance at work and shoulder overhead movement is limited. In my professional opinion, patient would benefit with skilled PT to address the aforementioned issues and improve quality of life. Physical Therapy Plan Frequency and Duration Frequency of Treatment 2x/Week Duration of Treatment 8wks Plan of Care Start Date 07/14/18 Plan of Care End Date 09/15/18 Therapeutic Interventions Therapeutic Interventions Home Exercise Program Joint Mobilizations Manual Therapy Patient/Caregiver Education Self-Care/Home Management Soft Tissue Mobilization Taping Therapeutic Activities Therapeutic Exercises Modalities Cold Pack/Ice Massage Electric Stimulation Hot Packs Ultrasound Next Visit Focus/Plan Next Note Type Treatment Note Next Visit Plan Provide HEP, Decrease pain. ICE/IFC, ROM
--- NOTE | 2018-07-14 17:32 | PT.OPPOC ---
Current Diagnoses Impingement syndrome of right shoulder (07/14/18) Provider Visit Care Team Role Provider Type Mely Rodriges PA-C Primary Care Provider Advanced Service Learning Coordinator Specialty: Internal Medicine Address: [address] [place] [address], [id number] Email: Zach Casanova MD Attending Provider Physician Specialty: Orthopedic Surgery Address: [address] [place] [address], [id number] Email: [email or web address] Plan Of Care PT-OP-T Assessment and Plan Start: 07/14/18 15:09 Freq: Status: Active Protocol: Document 07/14/18 16:39 EA (Rec: 07/14/18 17:09 EA [id number]) Physical Therapy Assessment Rehab Potential Rehabilitation Potential Good Evaluation Complexity Number of Personal Factors/Comorbidities 3 or More Number of Body Systems Impaired 1-2 Clinical Presentation at Evaluation Evolving Impairments Impairments Activity Tolerance Functional Activities Pain ROM Strength Goals Four Impairment Quick Dash score of 20% impaired Preparation Room Worker Goal (LTG) Patient will have quickDash score of 5% impaired. LTG Duration 4 wks Three Impairment Reported PS of 7/10 at worst Preparation Room Worker Goal (LTG) Patient will reports pain at worst of 2/10 LTG Duration 4 wks Two Impairment Impaired right shoulder strength Residential Goal (LTG) Patient will increase right shoulder ABD/ER/IR strength by 1/2 grade for functional mobility. LTG Duration 4 wks One Impairment Impaired R shoulder ROM Preparation Room Worker Goal (LTG) Patient will exhibit normal right shoulder ROM without pain in all direction to enable perform daily task. LTG Duration 4 wks Assessment Summary Assessment Pleasant 52 y/o F patient with a previous history of rotator cuff repair 20 years ago. Today patient presented with shoulder impingement with probable rotator cuff tendon involvement. Test reveals positive with Empty can's, Lift off test, pain increased with resisted shoulder internal rotation and passive end range external rotation. Long head of biceps test reveals negative. Tender to palpate at anterolat joint, posterior shoulder and lateral angle of right scapula. Strength into ABD/Flexion and shoulder ER reveals 3+/5. Due to patient shoulder dysfunction, patient tolerance at work and shoulder overhead movement is limited. In my professional opinion, patient would benefit with skilled PT to address the aforementioned issues and improve quality of life. Physical Therapy Plan Frequency and Duration Frequency of Treatment 2x/Week Duration of Treatment 8wks Plan of Care Start Date 07/14/18 Plan of Care End Date 09/15/18 Therapeutic Interventions Therapeutic Interventions Home Exercise Program Joint Mobilizations Manual Therapy Patient/Caregiver Education Self-Care/Home Management Soft Tissue Mobilization Taping Therapeutic Activities Therapeutic Exercises Modalities Cold Pack/Ice Massage Electric Stimulation Hot Packs Ultrasound Next Visit Focus/Plan Next Note Type Treatment Note Next Visit Plan Provide HEP, Decrease pain. ICE/IFC, ROM Plan of Care Dates Plan of Care Start Date 07/14/18 Plan of Care End Date 09/15/18 Please Sign and Return: I have reviewed this Plan of Care and certify that the skilled therapy services above are required to meet the patient?s needs. Physician Signature Date Printed Name and Credentials Clinical Instructor Signature Printed Name and Credentials
--- NOTE | 2018-07-19 12:22 | PT.OTN ---
Current Diagnoses Impingement syndrome of right shoulder (07/19/18) Physical Therapy Treatment Note PT-OP-A Visit Information Start: 07/14/18 15:09 Freq: Status: Active Protocol: Document 07/19/18 08:59 EA (Rec: 07/19/18 09:42 EA [id number]) Out-Patient Physical Therapy Visit Information Visit Information Visit Type Treatment Note Visit Start Time 09:00 Visit Stop Time 09:45 Total Visit Minutes 45 PT-OP-B Current Condition Start: 07/14/18 15:09 Freq: Status: Active Protocol: Document 07/14/18 15:10 EA (Rec: 07/14/18 15:11 EA [id number]) Current Condition History of Current Condition Onset Date 4 months ago Current Complaints Right shoulder pain History of Current Condition Patient reports current right shoulder condition started 4 months ago while reaching for the alarm clock in left sidelying position. Patient reports localized shoulder pain gradually developed and increased in the span of 3 months and that made to see her doctor. 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 No significant history of shoulder injury recently. Prior Treatments and Tests None identified. To follow up next visit Future Testing and Treatments Planned None identified. To follow up next visit Treatment Goals Patient/Caregiver Goals Eliminate pain Prior Functional Status Baseline Function- ADL's Independent Baseline Function- Mobility Independent Baseline Function- Work/School No shoulder limitation at home and work. Current Functional Impairments (Reported) Functional Limitations- ADL's Limited with overhead and across the body movement. Functional Limitations- Work/School Limited with shoulder overhead movement and dependent position Personal Factors Other Personal Factors That May Effect Previous history of shoulder Therapy/Recovery surgery PT-OP-C Subjective Start: 07/14/18 15:09 Freq: Status: Active Protocol: Document 07/19/18 08:59 EA (Rec: 07/19/18 09:42 EA [id number]) OP-PT Subjective Patient Comments Patient Comments Pt reports a little improvemnt with pain after foll;owing home recommendation; states pain still up with overhead movement.` PT-OP-E Functional Tests Start: 07/14/18 15:09 Freq: Status: Active Protocol: Document 07/14/18 16:39 EA (Rec: 07/14/18 17:09 EA [id number]) Functional Tests Miguel's Scratch Test Action 1: The subject is instructed to touch the opposite shoulder with his/her hand. This motion checks Glenohumeral adduction, internal rotation , horizontal adduction and scapular protraction Action 2: The subject is instructed to place his/her arm overhead and reach behind the neck to touch his/her upper back. This motion checks Glenohumeral abduction, external rotation and scapular upward rotation and elevation. Action 3: The subject puts his/her hand on the lower back and reaches upward as far as possible. This motion checks glenohumeral adduction, internal rotation and scapular retraction with downward rotation Action 1- Left C7 Action 1- Right acromion process of left shoulder Action 2- Left T2 Action 2- Right C7 Action 3- Left T8 Action 3- Right L1 PT-OP-F Manual Assessment Start: 07/14/18 15:09 Freq: Status: Active Protocol: Document 07/14/18 16:39 EA (Rec: 07/14/18 17:09 EA [id number]) Manual Assessments Soft Tissue Assessment Soft Tissue Mobility Assessment Tight shoulder adductors Joint Mobility Assessment Joint Mobility Assessment No signs of joint hypomobility PT-OP-J Posture/Palpation/Skin Start: 07/14/18 15:09 Freq: Status: Active Protocol: Document 07/14/18 16:39 EA (Rec: 07/14/18 17:09 EA [id number]) Posture Evaluation Position Standing Evaluation View Lateral Shoulder Posture Neutral Palpation Assessment Location One Palpation Location Right shoulder Palpation Findings Muscle Guarding Tenderness Palpation Details Grade 2 tenderness: Right lateral scapular angle and ethel lateral shoulder PT-OP-K Range of Motion Start: 07/14/18 15:09 Freq: Status: Active Protocol: Document 07/14/18 16:39 EA (Rec: 07/14/18 17:09 EA [id number]) Shoulder Goniometric Range of Motion Shoulder Measured in Degrees Right Shoulder ROM WFL Yes Testing Position Supine Flexion 170 Extension 60 Abduction 90 External Rotation at 90 degrees 75 Abduction External Rotation at 45 degrees 60 Abduction PT-OP-L Special Tests Start: 07/14/18 15:09 Freq: Status: Active Protocol: Document 07/14/18 16:39 EA (Rec: 07/14/18 17:09 EA [id number]) Special Tests Shoulder Special Tests Speed's Biceps Test Results - Yergason's Biceps Test Results - Elevation Impingement Test Results + IR/Horizontal ADD Impingement Test Results + Empty Can Test Results + Irizarry Solitario Impingement Test Results - Belly Press Test Results - Lift-Off Rotator Cuff Test Results + PT-OP-M Strength Start: 07/14/18 15:09 Freq: Status: Active Protocol: Document 07/14/18 16:39 EA (Rec: 07/14/18 17:09 EA [id number]) Shoulder Strength Shoulder Manual Muscle Testing Right Flexion 3+ Fair+ Extension 5 Normal Abduction (C5) 3+ Fair+ External Rotation 3+ Fair+ Internal Rotation 3+ Fair+ Horizontal Abduction 4 Good PT-OP-Q Treatments Start: 07/14/18 15:09 Freq: Status: Active Protocol: Document 07/19/18 08:59 EA (Rec: 07/19/18 09:42 EA [id number]) Therapeutic Exercises Supine Exercises 1 Supine Exercise Name Horiz ABD Reps/Minutes x 15 reps x 2 sets Standing Exercises 5 Standing Exercise Name T-bar shoulder ext Side bilateral Reps/Minutes x 15 reps x 2 sets 4 Standing Exercise Name IR Side right Equipment Used Lv 1 Reps/Minutes x 10 reps Comments Pain free range 3 Standing Exercise Name ER Side right Equipment Used Lv 1 TB Reps/Minutes x 10 reps Comments Pain free range 2 Standing Exercise Name shoulder ext Equipment Used Lv 1 TB Reps/Minutes x 12 reps 1 Standing Exercise Name Wall slides: flexion and V- form Reps/Minutes x 15 reps x 2 Manual Therapy Treatment Soft Tissue Mobilization 1 Body Location Post and lateral shoulder Mobilization Type Cross-Friction Rolling Sustained Pressure Intensity/Depth Superficial Body Position Sidelying PT-OP-R Modalities Start: 07/14/18 15:09 Freq: Status: Active Protocol: Document 07/19/18 08:59 EA (Rec: 07/19/18 09:42 EA [id number]) Electric Stimulation Electric Stimulation Interferential Current (IFC) Body Location IS/SS Duration (Minutes) 15 Intensity 12 Patient Position Sidelying Combined With Heat/Cold Cold Pack Ultrasound Therapy Treatment Right Lower Posterior Shoulder Patient Position Sidelying Coupling Medium Ultrasound Gel Frequency Setting (mHz) 1 Mode Setting Continuous Intensity Setting (w/cm2) 1.2 PT-OP-T Assessment and Plan Start: 07/14/18 15:09 Freq: Status: Active Protocol: Document 07/19/18 08:59 EA (Rec: 07/19/18 09:42 TARYN [id number]) Physical Therapy Assessment Assessment Summary Assessment Patient tolerated treatment well. Recommended HEP to perform. Physical Therapy Plan Next Visit Focus/Plan Next Note Type Treatment Note Next Visit Plan Cont with current plan
--- NOTE | 2018-07-21 13:17 | PT.OTN ---
Current Diagnoses Impingement syndrome of right shoulder (07/21/18) Physical Therapy Treatment Note PT-OP-A Visit Information Start: 07/14/18 15:09 Freq: Status: Active Protocol: Document 07/21/18 10:31 SAK (Rec: 07/21/18 11:18 SAK [id number]) Out-Patient Physical Therapy Visit Information Visit Information Visit Type Treatment Note Visit Start Time 10:30 Visit Stop Time 11:25 Total Visit Minutes 55 Evaluation Information Evaluation Date 07/14/18 PT-OP-B Current Condition Start: 07/14/18 15:09 Freq: Status: Active Protocol: Document 07/14/18 15:10 EA (Rec: 07/14/18 15:11 EA [id number]) Current Condition History of Current Condition Onset Date 4 months ago Current Complaints Right shoulder pain History of Current Condition Patient reports current right shoulder condition started 4 months ago while reaching for the alarm clock in left sidelying position. Patient reports localized shoulder pain gradually developed and increased in the span of 3 months and that made to see her doctor. 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 No significant history of shoulder injury recently. Prior Treatments and Tests None identified. To follow up next visit Future Testing and Treatments Planned None identified. To follow up next visit Treatment Goals Patient/Caregiver Goals Eliminate pain Prior Functional Status Baseline Function- ADL's Independent Baseline Function- Mobility Independent Baseline Function- Work/School No shoulder limitation at home and work. Current Functional Impairments (Reported) Functional Limitations- ADL's Limited with overhead and across the body movement. Functional Limitations- Work/School Limited with shoulder overhead movement and dependent position Personal Factors Other Personal Factors That May Effect Previous history of shoulder Therapy/Recovery surgery PT-OP-C Subjective Start: 07/14/18 15:09 Freq: Status: Active Protocol: Document 07/21/18 10:31 SAK (Rec: 07/21/18 13:17 SAK [id number]) OP-PT Subjective Patient Comments Patient Comments Patient reports horrible day of pain yesterday after manual treatment. PT-OP-E Functional Tests Start: 07/14/18 15:09 Freq: Status: Active Protocol: Document 07/14/18 16:39 EA (Rec: 07/14/18 17:09 EA [id number]) Functional Tests Miguel's Scratch Test Action 1: The subject is instructed to touch the opposite shoulder with his/her hand. This motion checks Glenohumeral adduction, internal rotation , horizontal adduction and scapular protraction Action 2: The subject is instructed to place his/her arm overhead and reach behind the neck to touch his/her upper back. This motion checks Glenohumeral abduction, external rotation and scapular upward rotation and elevation. Action 3: The subject puts his/her hand on the lower back and reaches upward as far as possible. This motion checks glenohumeral adduction, internal rotation and scapular retraction with downward rotation Action 1- Left C7 Action 1- Right acromion process of left shoulder Action 2- Left T2 Action 2- Right C7 Action 3- Left T8 Action 3- Right L1 PT-OP-F Manual Assessment Start: 07/14/18 15:09 Freq: Status: Active Protocol: Document 07/14/18 16:39 EA (Rec: 07/14/18 17:09 EA [id number]) Manual Assessments Soft Tissue Assessment Soft Tissue Mobility Assessment Tight shoulder adductors Joint Mobility Assessment Joint Mobility Assessment No signs of joint hypomobility PT-OP-J Posture/Palpation/Skin Start: 07/14/18 15:09 Freq: Status: Active Protocol: Document 07/14/18 16:39 EA (Rec: 07/14/18 17:09 EA [id number]) Posture Evaluation Position Standing Evaluation View Lateral Shoulder Posture Neutral Palpation Assessment Location One Palpation Location Right shoulder Palpation Findings Muscle Guarding Tenderness Palpation Details Grade 2 tenderness: Right lateral scapular angle and ethel lateral shoulder PT-OP-K Range of Motion Start: 07/14/18 15:09 Freq: Status: Active Protocol: Document 07/14/18 16:39 EA (Rec: 07/14/18 17:09 EA [id number]) Shoulder Goniometric Range of Motion Shoulder Measured in Degrees Right Shoulder ROM WFL Yes Testing Position Supine Flexion 170 Extension 60 Abduction 90 External Rotation at 90 degrees 75 Abduction External Rotation at 45 degrees 60 Abduction PT-OP-L Special Tests Start: 07/14/18 15:09 Freq: Status: Active Protocol: Document 07/14/18 16:39 EA (Rec: 07/14/18 17:09 EA [id number]) Special Tests Shoulder Special Tests Jose Alberto's Biceps Test Results - Yererinn's Biceps Test Results - Elevation Impingement Test Results + IR/Horizontal ADD Impingement Test Results + Empty Can Test Results + Irizarry Solitario Impingement Test Results - Belly Press Test Results - Lift-Off Rotator Cuff Test Results + PT-OP-M Strength Start: 07/14/18 15:09 Freq: Status: Active Protocol: Document 07/14/18 16:39 EA (Rec: 07/14/18 17:09 EA [id number]) Shoulder Strength Shoulder Manual Muscle Testing Right Flexion 3+ Fair+ Extension 5 Normal Abduction (C5) 3+ Fair+ External Rotation 3+ Fair+ Internal Rotation 3+ Fair+ Horizontal Abduction 4 Good PT-OP-Q Treatments Start: 07/14/18 15:09 Freq: Status: Active Protocol: Document 07/21/18 10:31 SAK (Rec: 07/21/18 13:17 SAK [id number]) Therapeutic Exercises Sitting Exercises 1 Sitting Exercise Name pulleys shoulder flex Reps/Minutes 20x Comments painf-free ROM Standing Exercises 6 Standing Exercise Name row Equipment Used L1 TB Reps/Minutes 10x 5 Standing Exercise Name T-bar shoulder ext Side bilateral Reps/Minutes x 15 reps x 2 sets 4 Standing Exercise Name IR Side right Equipment Used Lv 1 Reps/Minutes x 10 reps Comments Pain free range 3 Standing Exercise Name ER Side right Equipment Used Lv 1 TB Reps/Minutes x 10 reps Comments Pain free range 2 Standing Exercise Name shoulder ext Equipment Used Lv 1 TB Reps/Minutes x 12 reps 1 Standing Exercise Name Wall slides: flexion and V- form Reps/Minutes x 15 reps x 2 Manual Therapy Treatment Taping 1 Body Location left shoulder Treatment Focus rotator cuff support Type of Tape Kinesio Tape Comments 3 Y strips PT-OP-R Modalities Start: 07/14/18 15:09 Freq: Status: Active Protocol: Document 07/21/18 10:31 SAK (Rec: 07/21/18 13:17 SAK [id number]) Electric Stimulation Electric Stimulation Interferential Current (IFC) Body Location IS/SS Duration (Minutes) 15 Intensity 11 Patient Position Supine Combined With Heat/Cold Cold Pack Ultrasound Therapy Treatment Right Lower Posterior Shoulder Patient Position Sitting Coupling Medium Ultrasound Gel Frequency Setting (mHz) 1 Mode Setting Continuous Intensity Setting (w/cm2) 1.2 PT-OP-T Assessment and Plan Start: 07/14/18 15:09 Freq: Status: Active Protocol: Document 07/21/18 10:31 ALLEY (Rec: 07/21/18 13:17 [facility] [id number]) Physical Therapy Assessment Goals Four Impairment Quick Dash score of 20% impaired Senior Care Goal (LTG) Patient will have quickDash score of 5% impaired. LTG Duration 4 wks Three Impairment Reported PS of 7/10 at worst Radio Division Officer Goal (LTG) Patient will reports pain at worst of 2/10 LTG Duration 4 wks Two Impairment Impaired right shoulder strength Radio Division Officer Goal (LTG) Patient will increase right shoulder ABD/ER/IR strength by 1/2 grade for functional mobility. LTG Duration 4 wks One Impairment Impaired R shoulder ROM Radio Division Officer Goal (LTG) Patient will exhibit normal right shoulder ROM without pain in all direction to enable perform daily task. LTG Duration 4 wks Assessment Summary Assessment Mary Kate treatment well with cues for ex in painfree ROM. No manual treatment today due to c/o pain from last session. Physical Therapy Plan Frequency and Duration Frequency of Treatment 2x/Week Duration of Treatment 8wks Plan of Care Start Date 07/14/18 Plan of Care End Date 09/15/18 Therapeutic Interventions Therapeutic Interventions Home Exercise Program Joint Mobilizations Manual Therapy Patient/Caregiver Education Self-Care/Home Management Soft Tissue Mobilization Taping Therapeutic Activities Therapeutic Exercises Modalities Cold Pack/Ice Massage Electric Stimulation Hot Packs Ultrasound Next Visit Focus/Plan Next Note Type Treatment Note Next Visit Plan Assess response to kinesiotape , progress ther ex as tolerated. Modalities and manual therapy as indicated.
--- NOTE | 2018-07-26 12:10 | PT.OTN ---
Current Diagnoses Impingement syndrome of right shoulder (07/26/18) Physical Therapy Treatment Note PT-OP-A Visit Information Start: 07/14/18 15:09 Freq: Status: Active Protocol: Document 07/26/18 09:02 EA (Rec: 07/26/18 09:45 EA [id number]) Out-Patient Physical Therapy Visit Information Visit Information Visit Type Treatment Note Visit Start Time 09:00 Visit Stop Time 09:55 Total Visit Minutes 55 PT-OP-B Current Condition Start: 07/14/18 15:09 Freq: Status: Active Protocol: Document 07/14/18 15:10 EA (Rec: 07/14/18 15:11 EA [id number]) Current Condition History of Current Condition Onset Date 4 months ago Current Complaints Right shoulder pain History of Current Condition Patient reports current right shoulder condition started 4 months ago while reaching for the alarm clock in left sidelying position. Patient reports localized shoulder pain gradually developed and increased in the span of 3 months and that made to see her doctor. 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 No significant history of shoulder injury recently. Prior Treatments and Tests None identified. To follow up next visit Future Testing and Treatments Planned None identified. To follow up next visit Treatment Goals Patient/Caregiver Goals Eliminate pain Prior Functional Status Baseline Function- ADL's Independent Baseline Function- Mobility Independent Baseline Function- Work/School No shoulder limitation at home and work. Current Functional Impairments (Reported) Functional Limitations- ADL's Limited with overhead and across the body movement. Functional Limitations- Work/School Limited with shoulder overhead movement and dependent position Personal Factors Other Personal Factors That May Effect Previous history of shoulder Therapy/Recovery surgery PT-OP-C Subjective Start: 07/14/18 15:09 Freq: Status: Active Protocol: Document 07/26/18 09:02 EA (Rec: 07/26/18 09:45 EA [id number]) OP-PT Subjective Patient Comments Patient Comments Pt reports shoulder is way better and feels taping is helping her. Pt stated that unable to do some HEP. PT-OP-E Functional Tests Start: 07/14/18 15:09 Freq: Status: Active Protocol: Document 07/14/18 16:39 EA (Rec: 07/14/18 17:09 EA [id number]) Functional Tests Miguel's Scratch Test Action 1: The subject is instructed to touch the opposite shoulder with his/her hand. This motion checks Glenohumeral adduction, internal rotation , horizontal adduction and scapular protraction Action 2: The subject is instructed to place his/her arm overhead and reach behind the neck to touch his/her upper back. This motion checks Glenohumeral abduction, external rotation and scapular upward rotation and elevation. Action 3: The subject puts his/her hand on the lower back and reaches upward as far as possible. This motion checks glenohumeral adduction, internal rotation and scapular retraction with downward rotation Action 1- Left C7 Action 1- Right acromion process of left shoulder Action 2- Left T2 Action 2- Right C7 Action 3- Left T8 Action 3- Right L1 PT-OP-F Manual Assessment Start: 07/14/18 15:09 Freq: Status: Active Protocol: Document 07/14/18 16:39 EA (Rec: 07/14/18 17:09 EA [id number]) Manual Assessments Soft Tissue Assessment Soft Tissue Mobility Assessment Tight shoulder adductors Joint Mobility Assessment Joint Mobility Assessment No signs of joint hypomobility PT-OP-J Posture/Palpation/Skin Start: 07/14/18 15:09 Freq: Status: Active Protocol: Document 07/14/18 16:39 EA (Rec: 07/14/18 17:09 EA [id number]) Posture Evaluation Position Standing Evaluation View Lateral Shoulder Posture Neutral Palpation Assessment Location One Palpation Location Right shoulder Palpation Findings Muscle Guarding Tenderness Palpation Details Grade 2 tenderness: Right lateral scapular angle and ethel lateral shoulder PT-OP-K Range of Motion Start: 07/14/18 15:09 Freq: Status: Active Protocol: Document 07/14/18 16:39 EA (Rec: 07/14/18 17:09 EA [id number]) Shoulder Goniometric Range of Motion Shoulder Measured in Degrees Right Shoulder ROM WFL Yes Testing Position Supine Flexion 170 Extension 60 Abduction 90 External Rotation at 90 degrees 75 Abduction External Rotation at 45 degrees 60 Abduction PT-OP-L Special Tests Start: 07/14/18 15:09 Freq: Status: Active Protocol: Document 07/14/18 16:39 EA (Rec: 07/14/18 17:09 EA [id number]) Special Tests Shoulder Special Tests Jose Alberto's Biceps Test Results - Yererinn's Biceps Test Results - Elevation Impingement Test Results + IR/Horizontal ADD Impingement Test Results + Empty Can Test Results + Irizarry Solitario Impingement Test Results - Belly Press Test Results - Lift-Off Rotator Cuff Test Results + PT-OP-M Strength Start: 07/14/18 15:09 Freq: Status: Active Protocol: Document 07/14/18 16:39 EA (Rec: 07/14/18 17:09 EA [id number]) Shoulder Strength Shoulder Manual Muscle Testing Right Flexion 3+ Fair+ Extension 5 Normal Abduction (C5) 3+ Fair+ External Rotation 3+ Fair+ Internal Rotation 3+ Fair+ Horizontal Abduction 4 Good PT-OP-Q Treatments Start: 07/14/18 15:09 Freq: Status: Active Protocol: Document 07/26/18 09:02 EA (Rec: 07/26/18 09:45 EA [id number]) Cardio Equipment Upper Body Ergometer (UBE) Duration (Minutes) 6 Height 2.5 Gym Equipment Cable Column (Body Solid) Rows Resistance 20Lbs Reps/Time x 12 reps Therapeutic Exercises Standing Exercises 5 Standing Exercise Name T-bar shoulder ext Side bilateral Reps/Minutes x 15 reps x 2 sets 4 Standing Exercise Name IR Side right Equipment Used Lv 1 Reps/Minutes x 10 reps Comments Pain free range 3 Standing Exercise Name ER Side right Equipment Used Lv 1 TB Reps/Minutes x 10 reps Comments Pain free range 2 Standing Exercise Name shoulder ext Equipment Used Lv 1 TB Reps/Minutes x 12 reps 1 Standing Exercise Name Wall slides: flexion and V- form Reps/Minutes x 15 reps x 2 Manual Therapy Treatment Soft Tissue Mobilization 1 Body Location Post and lateral shoulder Mobilization Type Cross-Friction Rolling Sustained Pressure Intensity/Depth Superficial Body Position Sidelying Taping 1 Body Location left shoulder Treatment Focus rotator cuff support Type of Tape Kinesio Tape Comments 3 Y strips PT-OP-R Modalities Start: 07/14/18 15:09 Freq: Status: Active Protocol: Document 07/26/18 09:02 EA (Rec: 07/26/18 09:45 EA [id number]) Electric Stimulation Electric Stimulation Interferential Current (IFC) Body Location IS/SS Duration (Minutes) 15 Intensity 11 Patient Position Supine Combined With Heat/Cold Cold Pack Ultrasound Therapy Treatment Right Lower Posterior Shoulder Patient Position Sitting Coupling Medium Ultrasound Gel Frequency Setting (mHz) 1 Mode Setting Continuous Intensity Setting (w/cm2) 1.2 PT-OP-T Assessment and Plan Start: 07/14/18 15:09 Freq: Status: Active Protocol: Document 07/26/18 09:02 TARYN (Rec: 07/26/18 09:45 EA [id number]) Physical Therapy Assessment Assessment Summary Assessment Patient tolerated treatment including superficial manual therapy. Physical Therapy Plan Next Visit Focus/Plan Next Note Type Treatment Note Next Visit Plan cont. with current plan
--- NOTE | 2018-08-03 16:34 | PT.OTN ---
Current Diagnoses Impingement syndrome of right shoulder (08/03/18) Physical Therapy Treatment Note PT-OP-A Visit Information Start: 07/14/18 15:09 Freq: Status: Active Protocol: Document 08/03/18 15:23 EA (Rec: 08/03/18 15:59 EA [id number]) Out-Patient Physical Therapy Visit Information Visit Information Visit Type Treatment Note Visit Start Time 15:15 Visit Stop Time 16:00 Total Visit Minutes 55 PT-OP-B Current Condition Start: 07/14/18 15:09 Freq: Status: Active Protocol: Document 07/14/18 15:10 EA (Rec: 07/14/18 15:11 EA [id number]) Current Condition History of Current Condition Onset Date 4 months ago Current Complaints Right shoulder pain History of Current Condition Patient reports current right shoulder condition started 4 months ago while reaching for the alarm clock in left sidelying position. Patient reports localized shoulder pain gradually developed and increased in the span of 3 months and that made to see her doctor. 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 No significant history of shoulder injury recently. Prior Treatments and Tests None identified. To follow up next visit Future Testing and Treatments Planned None identified. To follow up next visit Treatment Goals Patient/Caregiver Goals Eliminate pain Prior Functional Status Baseline Function- ADL's Independent Baseline Function- Mobility Independent Baseline Function- Work/School No shoulder limitation at home and work. Current Functional Impairments (Reported) Functional Limitations- ADL's Limited with overhead and across the body movement. Functional Limitations- Work/School Limited with shoulder overhead movement and dependent position Personal Factors Other Personal Factors That May Effect Previous history of shoulder Therapy/Recovery surgery PT-OP-C Subjective Start: 07/14/18 15:09 Freq: Status: Active Protocol: Document 07/26/18 09:02 EA (Rec: 07/26/18 09:45 EA [id number]) OP-PT Subjective Patient Comments Patient Comments Pt reports shoulder is way better and feels taping is helping her. Pt stated that unable to do some HEP. PT-OP-E Functional Tests Start: 07/14/18 15:09 Freq: Status: Active Protocol: Document 07/14/18 16:39 EA (Rec: 07/14/18 17:09 EA [id number]) Functional Tests Miguel's Scratch Test Action 1: The subject is instructed to touch the opposite shoulder with his/her hand. This motion checks Glenohumeral adduction, internal rotation , horizontal adduction and scapular protraction Action 2: The subject is instructed to place his/her arm overhead and reach behind the neck to touch his/her upper back. This motion checks Glenohumeral abduction, external rotation and scapular upward rotation and elevation. Action 3: The subject puts his/her hand on the lower back and reaches upward as far as possible. This motion checks glenohumeral adduction, internal rotation and scapular retraction with downward rotation Action 1- Left C7 Action 1- Right acromion process of left shoulder Action 2- Left T2 Action 2- Right C7 Action 3- Left T8 Action 3- Right L1 PT-OP-F Manual Assessment Start: 07/14/18 15:09 Freq: Status: Active Protocol: Document 07/14/18 16:39 EA (Rec: 07/14/18 17:09 EA [id number]) Manual Assessments Soft Tissue Assessment Soft Tissue Mobility Assessment Tight shoulder adductors Joint Mobility Assessment Joint Mobility Assessment No signs of joint hypomobility PT-OP-J Posture/Palpation/Skin Start: 07/14/18 15:09 Freq: Status: Active Protocol: Document 07/14/18 16:39 EA (Rec: 07/14/18 17:09 EA [id number]) Posture Evaluation Position Standing Evaluation View Lateral Shoulder Posture Neutral Palpation Assessment Location One Palpation Location Right shoulder Palpation Findings Muscle Guarding Tenderness Palpation Details Grade 2 tenderness: Right lateral scapular angle and ethel lateral shoulder PT-OP-K Range of Motion Start: 07/14/18 15:09 Freq: Status: Active Protocol: Document 07/14/18 16:39 EA (Rec: 07/14/18 17:09 EA [id number]) Shoulder Goniometric Range of Motion Shoulder Measured in Degrees Right Shoulder ROM WFL Yes Testing Position Supine Flexion 170 Extension 60 Abduction 90 External Rotation at 90 degrees 75 Abduction External Rotation at 45 degrees 60 Abduction PT-OP-L Special Tests Start: 07/14/18 15:09 Freq: Status: Active Protocol: Document 07/14/18 16:39 EA (Rec: 07/14/18 17:09 EA [id number]) Special Tests Shoulder Special Tests Jose Alberto's Biceps Test Results - Yererinn's Biceps Test Results - Elevation Impingement Test Results + IR/Horizontal ADD Impingement Test Results + Empty Can Test Results + Irizarry Solitario Impingement Test Results - Belly Press Test Results - Lift-Off Rotator Cuff Test Results + PT-OP-M Strength Start: 07/14/18 15:09 Freq: Status: Active Protocol: Document 07/14/18 16:39 EA (Rec: 07/14/18 17:09 EA [id number]) Shoulder Strength Shoulder Manual Muscle Testing Right Flexion 3+ Fair+ Extension 5 Normal Abduction (C5) 3+ Fair+ External Rotation 3+ Fair+ Internal Rotation 3+ Fair+ Horizontal Abduction 4 Good PT-OP-Q Treatments Start: 07/14/18 15:09 Freq: Status: Active Protocol: Document 08/03/18 15:23 EA (Rec: 08/03/18 15:59 EA [id number]) Cardio Equipment Upper Body Ergometer (UBE) Duration (Minutes) 6 Height 2.5 Therapeutic Exercises Sitting Exercises 1 Sitting Exercise Name pulleys shoulder flex Reps/Minutes 20x Comments painf-free ROM Standing Exercises 7 Standing Exercise Name DB shoulder press, Side raise Resistance 1-3 lbs Reps/Minutes x12 reps x 2 Comments 0-90 deg 6 Standing Exercise Name row Equipment Used L2 TB Reps/Minutes 10x 5 Standing Exercise Name T-bar shoulder ext Side bilateral Reps/Minutes x 15 reps x 2 sets 4 Standing Exercise Name IR Side right Equipment Used Lv 1 Reps/Minutes x 10 reps Comments Pain free range 3 Standing Exercise Name ER Side right Equipment Used Lv 1 TB Reps/Minutes x 10 reps Comments Pain free range 2 Standing Exercise Name T-Bar shoulder flexion Resistance 5 lbs Manual Therapy Treatment Soft Tissue Mobilization 1 Body Location Post and lateral shoulder Mobilization Type Cross-Friction Rolling Sustained Pressure Intensity/Depth Superficial Body Position Sidelying PT-OP-R Modalities Start: 07/14/18 15:09 Freq: Status: Active Protocol: Document 08/03/18 15:23 EA (Rec: 08/03/18 15:59 EA [id number]) Electric Stimulation Electric Stimulation Interferential Current (IFC) Body Location IS/SS Duration (Minutes) 15 Intensity 11 Patient Position Supine Combined With Heat/Cold Cold Pack Ultrasound Therapy Treatment Right Lower Posterior Shoulder Patient Position Sitting Coupling Medium Ultrasound Gel Frequency Setting (mHz) 1 Mode Setting Continuous Intensity Setting (w/cm2) 1.2 PT-OP-T Assessment and Plan Start: 07/14/18 15:09 Freq: Status: Active Protocol: Document 08/03/18 15:23 EA (Rec: 08/03/18 15:59 EA [id number]) Physical Therapy Assessment Assessment Summary Assessment No noted any signs of discomfort during exercises and manual PT. Patient is progressing well. Physical Therapy Plan Next Visit Focus/Plan Next Note Type Treatment Note Next Visit Plan advance as tolerated
--- NOTE | 2018-12-15 13:24 | PT.OPDS ---
Current Diagnoses Impingement syndrome of right shoulder (08/03/18) Provider Visit Care Team Role Provider Type Mely Rodriges PA-C Primary Care Provider Advanced Restaurant Assistant Manager Specialty: Internal Medicine Address: [address] [place] [address], [id number] Email: Zach Casanova MD Attending Provider Physician Specialty: Orthopedic Surgery Address: [address] [place] [address], [address] Email: [email or web address] Visit Number Visit Number 35 Discharge Summary PT-OP-B Current Condition Start: 07/14/18 15:09 Freq: Status: Active Protocol: Document 07/14/18 15:10 EA (Rec: 07/14/18 15:11 EA [id number]) Current Condition History of Current Condition Onset Date 4 months ago Current Complaints Right shoulder pain History of Current Condition Patient reports current right shoulder condition started 4 months ago while reaching for the alarm clock in left sidelying position. Patient reports localized shoulder pain gradually developed and increased in the span of 3 months and that made to see her doctor. 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 No significant history of shoulder injury recently. Prior Treatments and Tests None identified. To follow up next visit Future Testing and Treatments Planned None identified. To follow up next visit Treatment Goals Patient/Caregiver Goals Eliminate pain Prior Functional Status Baseline Function- ADL's Independent Baseline Function- Mobility Independent Baseline Function- Work/School No shoulder limitation at home and work. Current Functional Impairments (Reported) Functional Limitations- ADL's Limited with overhead and across the body movement. Functional Limitations- Work/School Limited with shoulder overhead movement and dependent position Personal Factors Other Personal Factors That May Effect Previous history of shoulder Therapy/Recovery surgery PT-OP-C Subjective Start: 07/14/18 15:09 Freq: Status: Active Protocol: Document 12/15/18 13:22 EA (Rec: 12/15/18 13:24 EA [id number]) OP-PT Subjective Patient Comments Patient Comments By phone conversation today; patient reports that her shoulder is doing ok and has been following recommended exercises; patient aggreable to discharge to skilled PT. Patient Reported Progress Improving PT-OP-E Functional Tests Start: 07/14/18 15:09 Freq: Status: Active Protocol: Document 07/14/18 16:39 EA (Rec: 07/14/18 17:09 EA [id number]) Functional Tests Apley's Scratch Test Action 1: The subject is instructed to touch the opposite shoulder with his/her hand. This motion checks Glenohumeral adduction, internal rotation , horizontal adduction and scapular protraction Action 2: The subject is instructed to place his/her arm overhead and reach behind the neck to touch his/her upper back. This motion checks Glenohumeral abduction, external rotation and scapular upward rotation and elevation. Action 3: The subject puts his/her hand on the lower back and reaches upward as far as possible. This motion checks glenohumeral adduction, internal rotation and scapular retraction with downward rotation Action 1- Left C7 Action 1- Right acromion process of left shoulder Action 2- Left T2 Action 2- Right C7 Action 3- Left T8 Action 3- Right L1 PT-OP-F Manual Assessment Start: 07/14/18 15:09 Freq: Status: Active Protocol: Document 07/14/18 16:39 EA (Rec: 07/14/18 17:09 EA [id number]) Manual Assessments Soft Tissue Assessment Soft Tissue Mobility Assessment Tight shoulder adductors Joint Mobility Assessment Joint Mobility Assessment No signs of joint hypomobility PT-OP-J Posture/Palpation/Skin Start: 07/14/18 15:09 Freq: Status: Active Protocol: Document 07/14/18 16:39 EA (Rec: 07/14/18 17:09 EA [id number]) Posture Evaluation Position Standing Evaluation View Lateral Shoulder Posture Neutral Palpation Assessment Location One Palpation Location Right shoulder Palpation Findings Muscle Guarding Tenderness Palpation Details Grade 2 tenderness: Right lateral scapular angle and ethel lateral shoulder PT-OP-K Range of Motion Start: 07/14/18 15:09 Freq: Status: Active Protocol: Document 07/14/18 16:39 EA (Rec: 07/14/18 17:09 EA [id number]) Shoulder Goniometric Range of Motion Shoulder Measured in Degrees Right Shoulder ROM WFL Yes Testing Position Supine Flexion 170 Extension 60 Abduction 90 External Rotation at 90 degrees 75 Abduction External Rotation at 45 degrees 60 Abduction PT-OP-L Special Tests Start: 07/14/18 15:09 Freq: Status: Active Protocol: Document 07/14/18 16:39 EA (Rec: 07/14/18 17:09 EA [id number]) Special Tests Shoulder Special Tests Jose Alberto's Biceps Test Results - Yererinn's Biceps Test Results - Elevation Impingement Test Results + IR/Horizontal ADD Impingement Test Results + Empty Can Test Results + Irizarry Solitario Impingement Test Results - Belly Press Test Results - Lift-Off Rotator Cuff Test Results + PT-OP-M Strength Start: 07/14/18 15:09 Freq: Status: Active Protocol: Document 07/14/18 16:39 EA (Rec: 07/14/18 17:09 EA [id number]) Shoulder Strength Shoulder Manual Muscle Testing Right Flexion 3+ Fair+ Extension 5 Normal Abduction (C5) 3+ Fair+ External Rotation 3+ Fair+ Internal Rotation 3+ Fair+ Horizontal Abduction 4 Good PT-OP-T Assessment and Plan Start: 07/14/18 15:09 Freq: Status: Active Protocol: Document 12/15/18 13:22 EA (Rec: 12/15/18 13:24 EA [id number]) Physical Therapy Assessment Assessment Summary Assessment Pt is discharge today; patient request. Physical Therapy Plan Discharge Physical Therapy Discharge Reasons Patient Request
== END 2019-01-17 11:18 ==
LOC: PHYS 15:15
PROVIDERS: PCP Physician Assistant; Visit Provider Orthopaedic Surgery
DX: M75.41 Impingement syndrome of right shoulder (principal)
CPT/HCPCS: 97014; 97035; 97110; 97140; 97161; 97535; G0283

== ENCOUNTER → 2018-08-18 08:28 | Outpatient (CLI) | payer OTHER, SELFPAY ==
[2018-06-23 10:46] VITALS: BMI 51.5
[2018-08-18 09:05] LABS: Add Manual Diff / Slide Review NO; Basophils Percent Auto 0.8 % (0-2); Eosinophils Percent Auto 1.8 % (2-4); Hematocrit 36.4 % (36-46); Hemoglobin 12.2 g/dL (12.0-16.0); Mean Corpuscular HGB Conc 33.6 % (30-36); Mean Corpuscular Hemoglobin 28.7 PG (26-34); Mean Corpuscular Volume 85.5 fL (80-100); Monocytes Percent Auto 6.3 % (3-14); Neutrophils Absolute Auto 4100 /uL (3000-5900); Neutrophils Percent Auto 68.1 % (50-75); Platelet Count 256 X10^3/uL (150-400); Red Blood Cell Count 4.26 X10^6/uL (4.0-5.2); Red Cell Distribution Width 14.1 % (11.6-14.8)
[2018-08-18 09:25] LABS: Hemoglobin A1C% w Est Avg Glu 5.8 % (4.0-6.0)
[2018-08-18 15:07] LABS: Albumin 4.3 g/dL (3.5-5.0); Albumin Globulin Ratio 1.4 (1.0-2.8); Alkaline Phosphatase 89 U/L (38-126); BUN Creatinine Ratio 18.8 (6-22); Bilirubin Total 0.6 mg/dL (0.2-1.3); Blood Urea Nitrogen 15 mg/dL (7-17); Carbon Dioxide 24 mmol/L (22-32); Chloride 105 mmol/L (98-107); Cholesterol 136 mg/dL (140-199); Estimated Glomerular Filt Rate > 60.0 mL/min (>60); Glucose 116 mg/dL (70-100); HDL Cholesterol 38 mg/dL (40-60); LDL Cholesterol Calculated 63 mg/dL (<100); Potassium 4.6 mmol/L (3.4-5.1); Sodium 141 mmol/L (137-145); Total Protein 7.3 g/dL (6.3-8.2); Triglycerides 174 mg/dL (35-150)
[2018-08-18 15:13] LABS: HEMOLYSIS 71 (0-50)
== END ==
PROVIDERS: PCP Physician Assistant; Visit Provider Physician Assistant
DX: E78.5 Hyperlipidemia, unspecified (principal); R73.03 Prediabetes
CPT/HCPCS: 36415; 80053; 80061; 83036; 85025

== ENCOUNTER → 2018-08-18 14:00 | Outpatient (CLI) | payer OTHER, SELFPAY ==
[2018-06-23 10:46] VITALS: BMI 51.5
== END ==
PROVIDERS: PCP Physician Assistant
DX: Z23 Encounter for immunization (principal)
CPT/HCPCS: 90471; 90686

== ENCOUNTER → 2018-08-30 08:48 | Outpatient (CLI) | payer OTHER, SELFPAY ==
[2018-06-23 10:46] VITALS: BMI 51.5
[2018-08-30 09:30] LABS: Alanine Aminotransferase 70 IU/L (9-52); Albumin 4.4 g/dL (3.5-5.0); Albumin Globulin Ratio 1.6 (1.0-2.8); Alkaline Phosphatase 105 U/L (38-126); Aspartate Aminotransferase 47 IU/L (14-36); BUN Creatinine Ratio 17.5 (6-22); Bilirubin Total 0.5 mg/dL (0.2-1.3); Blood Urea Nitrogen 14 mg/dL (7-17); Calcium 9.3 mg/dL (8.4-10.2); Carbon Dioxide 26 mmol/L (22-32); Chloride 104 mmol/L (98-107); Estimated Glomerular Filt Rate > 60.0 mL/min (>60); Globulin 2.7 g/dL (1.7-4.1); Glucose 131 mg/dL (70-100); HEMOLYSIS < 15 (0-50); Potassium 4.4 mmol/L (3.4-5.1); Sodium 142 mmol/L (137-145); Total Protein 7.1 g/dL (6.3-8.2)
== END ==
PROVIDERS: PCP Physician Assistant; Visit Provider Physician Assistant
DX: K75.81 Nonalcoholic steatohepatitis (NASH) (principal)
CPT/HCPCS: 36415; 80053

== ENCOUNTER → 2018-10-08 11:06 | Outpatient (CLI) | payer OTHER, SELFPAY ==
[2018-06-23 10:46] VITALS: BMI 51.5
--- NOTE | 2018-10-08 | DI.MG.S_ITS ---
BILATERAL DIGITAL SCREENING MAMMOGRAM 3D/2D WITH CAD: 10/08/2018 CLINICAL: Routine screening. Comparison is made to exams dated: 07/31/2013 mammogram, 07/21/2013 mammogram, and 12/31/2011 mammogram - [facility] Radiology. There are scattered fibroglandular elements in both breasts. Current study was also evaluated with a Computer Aided Detection (CAD) system. No significant masses, calcifications, or other findings are seen in either breast. There has been no significant interval change. IMPRESSION: NEGATIVE There is no mammographic evidence of malignancy. A 1 year screening mammogram is recommended. This exam was interpreted at Station ID: [id number]. NOTE: For mammograms, a report in lay terms will be sent to the patient. Approximately 15% of breast malignancies will not be visualized mammographically. In the management of a palpable breast mass, a negative mammogram must not discourage biopsy of a clinically suspicious lesion. Electronically Signed By: Ellie herrera/darius:10/10/2018 09:25:27 letter sent: Normal Exam ACR BI-RADS Category 1: Negative [id number]
== END ==
PROVIDERS: PCP Physician Assistant; Visit Provider Physician Assistant
DX: Z12.31 Encounter for screening mammogram for malignant neoplasm of breast (principal)
CPT/HCPCS: 77063; 77067

== ENCOUNTER 2018-12-02 07:42 | Day surgery (SDC) | payer OTHER, SELFPAY ==
[2018-06-23 10:46] VITALS: BMI 51.5
[2018-12-02 08:38] VITALS: BP 140/90; PULSE 81; RESP 16; TEMP 36.1; O2SAT 96; BMI 49.8
--- NOTE | 2018-12-02 08:52 | PM.HP.1 ---
History of Present Illness Date Patient Seen: 12/02/18 Time Patient Seen: 08:52 Chief complaint: [id number] SCREENING COLONOSCOPY Narrative: 53-year-old female with personal history of colon polyps who last underwent endoscopy about 5 years ago. She presents now for colorectal surveillance. On further history today she denies any recent gastrointestinal symptoms. No nausea, vomiting, abdominal pain, unintended weight loss, change in bowel habits, diarrhea, constipation, melena, hematochezia, or bright red blood per rectum. Patient History Medical History Obstructive sleep apnea on CPAP (Chronic) Personal history of colonic polyps (Acute) Atrial fibrillation with controlled ventricular response (Acute) History of cholelithiasis (Acute) Anxiety disorder (Chronic) Depression determined by examination (Chronic) Essential hypertension (Chronic) Morbid obesity with BMI of 50.0-59.9, adult (Chronic) Osteoarthritis involving multiple joints on both sides of body (Chronic) Surgical History History of colonoscopy (Acute) H/O gastroesophageal reflux (GERD) (Acute) Status post laparoscopic Katerin fundoplication (Acute) Status post laparoscopic cholecystectomy (Acute) Status post right rotator cuff repair (Acute) Status post total bilateral knee replacement (Acute) Social History household members: spouse Smoking Status: Former smoker Family & Social History Social History: household members spouse Tobacco & Substance use: Smoking Status Former smoker alcohol intake frequency holiday/special occasion Substance Use Type does not use Meds Home Medications Medication Instructions Recorded Confirmed Type atorvastatin 10 mg PO BEDTIME 06/21/18 12/02/18 History cetirizine [Zyrtec] 10 mg PO DAILY 06/21/18 12/02/18 History cholecalciferol (vitamin D3) 1,000 unit PO BID 06/21/18 12/02/18 History [Vitamin D3] clonazepam [Klonopin] 0.5 mg PO BID PRN 06/21/18 12/02/18 History duloxetine [Cymbalta] 90 mg PO DAILY 06/21/18 12/02/18 History metoprolol succinate 50 mg PO DAILY 06/21/18 12/02/18 History omeprazole magnesium [Prilosec OTC] 20 mg PO BID 06/21/18 12/02/18 History pseudoephedrine HCl [Sudafed 12 120 mg PO Q12H 06/21/18 12/02/18 History Hour] trazodone 100 mg PO DAILY 06/21/18 12/02/18 History zolpidem 10 mg PO BEDTIME PRN 06/21/18 12/02/18 History hydromorphone 2 mg PO Q3H PRN #30 tab 06/22/18 12/02/18 Rx Aspir-81 162 mg DAILY 12/02/18 12/02/18 History Allergies Allergy/AdvReac Type Severity Reaction Status Date / Time hydrocodone [HYDROCODONE] Allergy Unknown Swelling Verified 07/27/18 08:30 of Lip/Tongue/Throat sulfamethoxazole Allergy Unknown Swelling Verified 07/27/18 08:30 [From BACTRIM] of Lip/Tongue/Throat trimethoprim [From BACTRIM] Allergy Unknown Swelling Verified 07/27/18 08:30 of Lip/Tongue/Throat Review of Systems Review of Systems All systems reviewed & are unremarkable except as noted in HPI and below Exam Vital Signs (past 8 hours): - 12/02/18 08:38 Temperature 97.0 F L Pulse Rate 81 Respiratory Rate 16 Blood Pressure 140/90 Pulse Oximetry 96 Oxygen Delivery Method Room Air Narrative Exam Narrative: Well-nourished well-developed moderately obese female in no acute distress. Alert oriented x3. Sclera nonicteric Regular rate and rhythm Abdomen obese but soft and nondistended. Extremities show no clubbing or cyanosis Objective Labs Labs: No recent laboratory or radiographic studies for review. Assessment & Plan Plan: Assessment/Plan Narrative: 53-year-old female with personal history of colon polyps requiring colorectal surveillance for such. I have recommended colonoscopy. She is well known to me from previous admission for laparoscopic appendectomy under my care. I have discussed colonoscopy with her today. Technical details were reviewed. Risks, benefits, alternatives were explained. Risks including but not limited to sedation, aspiration, bleeding, pain, missed lesion, incomplete examination, need for further radiographic studies, colonic perforation, need for major abdominal surgery, and all attendant risks of major surgery were discussed in detail. All questions were answered to her satisfaction, and she voiced understanding. Consent was placed on the chart. We will proceed as above.
[2018-12-02] MEDS: SODIUM CHLORIDE 0.9% 1,000 ML 200 ML IV (08:53)
--- NOTE | 2018-12-02 08:55 | PM.PREOP ---
Pre-operative Note Interval Note History & Physical reviewed/Exam performed by Physician: Yes Changes to H&P: No H&P completed within 30 days and has changed as indicated here:: Patient seen and examined today in the preoperative area. History and physical examination documented and placed on the chart. Obviously, there have been no changes within the last 30 min. We will proceed with colonoscopy today as planned. ASA Class (for procedural sedation): II
[2018-12-02] MEDS: MIDAZOLAM 5 MG/5 ML VIAL IV (09:32)
[2018-12-02] MEDS: fentaNYL 250 MCG/5 ML INJ IV (09:33)
--- NOTE | 2018-12-02 09:47 | P.OP.ENDO_ITS ---
Operative Date/Time/Diagnoses Date of procedure: 12/02/18 Time of procedure: 09:45 Pre-op diagnosis: Personal history colon polyps Post-op diagnosis: other (Normal colon and rectum today) Procedure & Clinicians Study performed: 1. Sedation per surgeon 2. Colonoscopy Same procedure as scheduled: Yes Indications: 53-year-old female with personal history of colon polyps. She requires colorectal surveillance for such. She is therefore recommended undergo colonoscopy currently. Surgeon: Armand Rodriguez Procedure Notes SCOAP/Timeout: Yes Procedure in detail: After obtaining informed consent, the patient was brought to the GI suite and placed in the left lateral decubitus position on the examination table. After placement of appropriate monitors, the patient was given incremental doses of Versed and Fentanyl until an appropriate level of sedation was achieved. A time out was held per SCOAP protocol. A digital rectal examination was performed and did not reveal any masses or obstructing lesions. The colonoscope was gently passed into the patient's anus and the entire colon navigated to the level of the cecum with minimal difficulty. Once in the cecum, the scope was withdrawn being sure to go before and beyond all mucosal folds and prominences and get an excellent examination. The findings are noted above. At the level of the rectal vault, the scope was retroflexed and the internal anal canal was examined. The scope was straightened and air aspirated from the colon. The instrument was removed from the patient's body and the procedure was concluded. The patient was allowed to awaken from sedation without difficulty and taken to the post-anesthesia care unit in good condition. Scope withdrawal time: 12:33 min Sedation minutes: 21 Findings: other findings (Normal colon and rectum today) Specimen(s): none sent Complications: none Recommendations: Colonscopy in 5 years (Due to personal history of colon polyps ) and High fiber diet Plan for aftercare: 1. Discharge home Follow up: as needed Disposition: PACU
[2018-12-02 09:53] VITALS: BP 126/78; PULSE 78; RESP 14; O2SAT 97
[2018-12-02 09:59] VITALS: BP 121/78; PULSE 70; RESP 11; O2SAT 97
== END 2018-12-02 10:15 | disposition home or self-care (01) ==
PROVIDERS: PCP Physician Assistant; Visit Provider Surgery
PROC: 0DJD8ZZ Inspection of Lower Intestinal Tract, Via Natural or Artificial Opening Endoscopic (ICD-10-PCS; CPT 45378; principal; 2018-12-02 09:15)
DX: Z86.010 Personal history of colon polyps (principal); G47.33 Obstructive sleep apnea (adult) (pediatric); I48.91 Unspecified atrial fibrillation; F41.9 Anxiety disorder, unspecified; I10 Essential (primary) hypertension; E66.01 Morbid (severe) obesity due to excess calories; Z68.43 Body mass index [BMI] 50.0-59.9, adult; Z87.891 Personal history of nicotine dependence
CPT/HCPCS: 45378; 99152; J2250; J3010

== ENCOUNTER → 2019-05-22 09:05 | Outpatient (CLI) | payer OTHER, SELFPAY ==
[2018-06-23 10:46] VITALS: BMI 51.5
--- NOTE | 2019-05-22 | DI.ECHO.S_ITS ---
[facility]---------+ [facility] +---------+ : : [address] : : : : [id number] : : : : Phone: [phone] +---------+ Echocardiogram Report + + :Name: TRACY RODRIGUEZ Study Date: 05/22/2019 Height: 64 in : :[facility] Exam Location: IS Weight: 295 lb : : Gender: Female BSA: 2.3 m2 : :: 1965 Age: 53 yrs BP: 145/92 mmHg: :Reason For Study: AFIB : : Performed By: Jonathan Mae : :Referring: NANO MORRIS : + + Interpretation Summary Normal both left and right ventricle size and function. The ejection fraction is 60-65%. Severely dilated left atrium. No valvular abnormality. Procedure: A two-dimensional transthoracic echocardiogram with color flow and Doppler was performed. The study quality was technically adequate. There is no prior echocardiogram noted for this patient. The subcostal views were difficult to obtain and are suboptimal in quality. The patient was in normal sinus rhythm during the exam. The patient had occasional PVCs during the exam. Left Ventricle: The left ventricle is normal in size. There is normal left ventricular wall thickness. The ejection fraction is estimated to be 60-65%. There are no focal wall motion abnormalities. Diastolic parameters suggest probable normal left ventricular diastolic function and normal filling pressures. Right Ventricle: The right ventricle is normal in size and function. Atria: The left atrium is severely dilated. Right atrial size is normal. The interatrial septum is intact with no evidence for an atrial septal defect. Mitral Valve: The mitral valve is normal in structure and function. There is trace mitral regurgitation. Aortic Valve: The aortic valve is normal in structure and function. The aortic valve is trileaflet. The aortic valve opens well. No aortic regurgitation is present. Tricuspid Valve: The tricuspid valve is normal in structure and function. There is trace tricuspid regurgitation. Right ventricular systolic pressure is estimated to be 21 mmHg plus the clinically estimated CVP which cannot be estimated on this exam. Pulmonic Valve: The pulmonic valve is normal in structure and function. There is trace pulmonic regurgitation. Great Vessels: The aortic root is normal size. The dimensions of the ascending aorta are normal. The pulmonary artery is normal size. The inferior vena cava was not well visualized. Pericardium/ Pleura There is no pericardial effusion. There is no pleural effusion. MMode/2D Measurements & Calculations LVIDd: 5.3 cm LVOT diam: 2.0 cm LVIDs: 3.8 cm Ao root diam: 3.3 cm FS: 28.4 % Aortic Jxn: 2.6 cm EPSS: 0.74 cm asc Aorta Diam: 3.0 cm IVSd: 0.73 cm Ao Arch Diam (Prox Trans): 2.9 cm LVPWd: 0.85 cm LV dinh. diameter/BSA (cm/m^2): 2.3 LV sys. diameter/BSA (cm/m^2): 1.6 LA dimension: 4.4 cm RA long axis: 4.9 cm LA A2 area: 28.6 cm2 RA area: 15.5 cm2 LA A4 area: 28.0 cm2 RA vol: 41.3 ml LA length (vol): 5.5 cm RA : 17.9 ml/m2 LA vol: 122.2 ml LA vol index: 53.0 ml/m2 Doppler Measurements & Calculations Ao V2 max: 163.1 cm/sec LVOT Max Osmar: 138.2 cm/sec Ao V2 mean: 121.9 cm/sec LV V1 max P.6 mmHg Ao max P.6 mmHg LV V1 VTI: 30.5 cm Ao mean P.4 mmHg RAMIRO(I,D): 2.4 cm2 Ao V2 VTI: 38.7 cm RAMIRO(V,D): 2.6 cm2 sev ratio: 0.79 RAMIRO indexed to BSA (cm^2/m^2): 1.0 MV E max osmar: 79.6 cm/sec TR max osmar: 228.8 cm/sec MV A max osmar: 56.2 cm/sec TR max P.9 mmHg MV E/A: 1.4 PA V2 max: 84.9 cm/sec MV dec time: 0.17 sec PA V2 mean: 61.8 cm/sec PA mean P.6 mmHg PA pr(Accel): 46.6 mmHg PA Accel Time: 0.07 sec SV(LVOT): 92.3 ml Electronically signed by: Patrice Zepeda on Reading Physician:05/22/2019 02:51 PM
== END ==
PROVIDERS: PCP Physician Assistant; Visit Provider Physician Assistant
DX: I48.0 Paroxysmal atrial fibrillation (principal); Q24.8 Other specified congenital malformations of heart
CPT/HCPCS: 93306

== ENCOUNTER → 2019-08-17 09:27 | Outpatient (CLI) | payer OTHER, SELFPAY ==
[2018-06-23 10:46] VITALS: BMI 51.5
[2019-08-17 10:28] LABS: Add Manual Diff / Slide Review NO; Basophils Absolute Auto 100 /uL (0-100); Basophils Percent Auto 0.9 % (0-2); Eosinophils Absolute Auto 100 /uL (0-450); Eosinophils Percent Auto 1.5 % (2-4); Hematocrit 37.5 % (36-46); Hemoglobin 12.7 g/dL (12.0-16.0); Lymphocytes Absolute Auto 2200 /uL (1100-4500); Lymphocytes Percent Auto 32.3 % (25-40); Mean Corpuscular HGB Conc 33.9 % (30-36); Mean Corpuscular Hemoglobin 29.3 PG (26-34); Mean Corpuscular Volume 86.3 fL (80-100); Monocytes Absolute Auto 500 /uL (0-900); Monocytes Percent Auto 6.8 % (3-14); Neutrophils Absolute Auto 3900 /uL (1500-7000); Neutrophils Percent Auto 58.5 % (50-75); Platelet Count 289 X10^3/uL (150-400); Red Blood Cell Count 4.34 X10^6/uL (4.0-5.2); Red Cell Distribution Width 14.4 % (11.6-14.8); White Blood Cell Count 6.7 X10^3/uL (4.5-11.0)
[2019-08-17 10:38] LABS: HEMOLYSIS < 15 (0-50)
[2019-08-17 10:46] LABS: Alanine Aminotransferase 63 IU/L (9-52); Albumin 4.7 g/dL (3.5-5.0); Albumin Globulin Ratio 1.7 (1.0-2.8); Alkaline Phosphatase 99 U/L (38-126); Aspartate Aminotransferase 51 IU/L (14-36); BUN Creatinine Ratio 21.3 (6-22); Bilirubin Total 0.6 mg/dL (0.2-1.3); Blood Urea Nitrogen 17 mg/dL (7-17); Carbon Dioxide 25 mmol/L (22-32); Chloride 105 mmol/L (98-107); Cholesterol 143 mg/dL (140-199); Estimated Glomerular Filt Rate > 60.0 mL/min (>60); Globulin 2.8 g/dL (1.7-4.1); Glucose 109 mg/dL (70-100); HDL Cholesterol 42 mg/dL (40-60); LDL Cholesterol Calculated 68 mg/dL (<100); Magnesium 1.9 mg/dL (1.6-2.3); Potassium 4.2 mmol/L (3.4-5.1); Sodium 140 mmol/L (137-145); Total Protein 7.5 g/dL (6.3-8.2); Triglycerides 163 mg/dL (35-150)
[2019-08-17 11:15] LABS: TSH w/ Reflex to FT4 3.55 uIU/mL (0.47-4.68)
[2019-08-17 16:30] LABS: Hemoglobin A1C% w Est Avg Glu 5.7 % (4.0-6.0)
[2019-08-17 16:54] LABS: Vitamin B12 647 pg/mL (239-931)
== END ==
PROVIDERS: PCP Physician Assistant; Visit Provider Internal Medicine Cardiovascular Disease
DX: I48.0 Paroxysmal atrial fibrillation (principal); Z79.01 Long term (current) use of anticoagulants; E78.5 Hyperlipidemia, unspecified; R73.03 Prediabetes; K75.81 Nonalcoholic steatohepatitis (NASH); E53.8 Deficiency of other specified B group vitamins
CPT/HCPCS: 36415; 80053; 80061; 82607; 83036; 83735; 84443; 85025

== ENCOUNTER → 2019-08-25 13:33 | Outpatient (CLI) | payer OTHER, SELFPAY ==
[2018-06-23 10:46] VITALS: BMI 51.5
--- NOTE | 2019-08-25 14:55 | PM.TREADMILL ---
Cardiac Stress Test Report Referral & Results Date Patient Seen: 08/25/19 Requesting provider: Francesco Barrera Indication: Atrial fibrillation Rest ECG: Sinus rhythm Procedure Note: Today following both written and verbal informed consent the patient was exercised according to a standard Yan protocol patient went for a total of 4 minutes 4 seconds achieving a maximum heart rate of 150 maximum systolic blood pressure of 230. This is approximately 7.0 METS. Exercise was terminated at this point because of 3+ dyspnea on 4+ fatigue. Patient was also given Cardiolite through a previously started Hep-Lock IV by the diagnostic imaging staff approximately 1 minute prior to the cessation of exercise. There are no ST-T segment changes identified Rare PAC Functional aerobic impairment rated about 30% of the sedentary scale Normal heart rate and blood pressure response Impression: No ECG evidence of ischemia Please see perfusion imaging report as well Please note: Actual ECG tracings can be found in the PACS system.
--- NOTE | 2019-08-28 17:20 | DI.NM.S_ITS ---
DATE OF SERVICE: 08/25/2019 PROCEDURE: Exercise perfusion study. INDICATIONS: Paroxysmal atrial fibrillation, hypertension. RADIOPHARMACEUTICAL: 25.4 mCi technetium-99m Myoview IV was injected at stress and 24.5 mCi technetium-99m Myoview IV was injected at rest. CARDIAC STRESS: Patient underwent exercise perfusion study under the supervision of an attending staff. She walked on Yan protocol for about 4 minutes 04 seconds, achieved 91% of target heart rate. There was hypertensive blood pressure response. Baseline blood pressure 120/80. Peak blood pressure reported to be 230/80. Patient developed dyspnea and fatigue. Baseline EKG revealed sinus rhythm. Stress EKG did not reveal any convincing ischemic changes. There were no significant arrhythmias. Functional aerobic impairment +40% on active scale. RAW DATA: There was significant breast shadow seen. GATED STUDY: Resting LV ejection fraction 69% and stress LV ejection fraction 74% without any obvious wall motion abnormalities. Resting end-diastolic volume is 130 mL. No transient ischemic dilatation. TID ratio is 0.0.96, which is within normal limits. MYOCARDIAL PERFUSION SCAN: Stress supine and resting supine images revealed small-sized mildly decreased perfusion of mid-anterior wall as well as basal anterior wall. During prone images, base-to-mid anterior wall defect got normalized; however, there was new distal anterior wall and anteroapical defect seen. No reversible ischemia. Most likely we are dealing with shifting breast tissue attenuation artifact. CONCLUSION: I will call this study likely a normal myocardial perfusion study with evidence of shifting breast tissue attenuation artifact as stated above. Poor exercise tolerance. Hypertensive blood pressure response. No ischemic changes. No significant arrhythmias. Preserved left ventricular function. Patient's weight is 289 pounds. As far as perfusion scan is concerned, this is a low-risk myocardial perfusion scan. Alma Julio - MARLO/murray/ doc#: [id number]/job#: [id number] dd: 08/28/2019 17:03:00 dt: 08/28/2019 17:08:00 DICTATING MD/COPIES TO: Robert Ocasio MD COPIES MNE: NAOMIE
== END ==
PROVIDERS: Family Provider Physician Assistant; PCP Physician Assistant; Visit Provider Internal Medicine Cardiovascular Disease
DX: I48.0 Paroxysmal atrial fibrillation (principal); I10 Essential (primary) hypertension
CPT/HCPCS: 78452; 93016; 93017; 93018; A9502

== ENCOUNTER → 2019-08-31 11:59 | Outpatient (CLI) | payer OTHER, SELFPAY ==
[2018-06-23 10:46] VITALS: BMI 51.5
== END ==
PROVIDERS: PCP Physician Assistant
DX: Z23 Encounter for immunization (principal)
CPT/HCPCS: 90471; 90686

== ENCOUNTER → 2020-01-02 07:57 | Outpatient (CLI) | payer OTHER, SELFPAY ==
[2018-06-23 10:46] VITALS: BMI 51.5
[2020-01-02 08:05] LABS: RBC Urine None Seen (0-5/HPF)
[2020-01-02 08:44] LABS: Appearance Urine UA CLEAR; Bilirubin Urine UA NEGATIVE (NEGATIVE); Color Urine UA YELLOW; Glucose Urine UA NEGATIVE (Negative); Ketones Urine UA NEGATIVE (NEGATIVE); Leukocyte Esterase Urine UA TRACE (NEGATIVE); Nitrite Urine UA NEGATIVE (Negative); Occult Blood Urine UA NEGATIVE (Negative); Protein Urine UA NEGATIVE (Negative); Specific Gravity Urine UA 1.015 (1.000-1.035); Urobilinogen Urine UA 0.2 E.U./dL (0.2)
[2020-01-02 08:45] LABS: Bacteria Urine Many (>30); Squamous Epithelial Cell Urine 1-5 /HPF (0-5/HPF); WBC Urine 1-5/HPF (0-5/HPF)
== END ==
PROVIDERS: PCP Physician Assistant; Referring Provider Physician Assistant; Visit Provider Physician Assistant
DX: R39.15 Urgency of urination (principal)
CPT/HCPCS: 81001; 87077; 87086; 87186

== ENCOUNTER → 2020-01-10 08:14 | Outpatient (CLI) | payer OTHER, SELFPAY ==
[2018-06-23 10:46] VITALS: BMI 51.5
[2020-01-10 08:59] LABS: Add Manual Diff / Slide Review NO; Basophils Absolute Auto 0 /uL (0-100); Basophils Percent Auto 0.6 % (0-2); Eosinophils Absolute Auto 100 /uL (0-450); Hematocrit 36.4 % (36-46); Hemoglobin 12.2 g/dL (12.0-16.0); Lymphocytes Absolute Auto 1700 /uL (1100-4500); Lymphocytes Percent Auto 23.8 % (25-40); Mean Corpuscular HGB Conc 33.5 % (30-36); Mean Corpuscular Hemoglobin 28.9 PG (26-34); Mean Corpuscular Volume 86.1 fL (80-100); Monocytes Absolute Auto 400 /uL (0-900); Monocytes Percent Auto 5.3 % (3-14); Neutrophils Absolute Auto 4800 /uL (1500-7000); Neutrophils Percent Auto 68.3 % (50-75); Platelet Count 333 X10^3/uL (150-400); Red Blood Cell Count 4.22 X10^6/uL (4.0-5.2)
[2020-01-10 09:10] LABS: Hemoglobin A1C% w Est Avg Glu 5.5 % (4.0-6.0)
[2020-01-10 09:34] LABS: Alanine Aminotransferase 66 IU/L (<35); Albumin 4.3 g/dL (3.5-5.0); Albumin Globulin Ratio 1.4 (1.0-2.8); Alkaline Phosphatase 113 U/L (38-126); Aspartate Aminotransferase 58 IU/L (14-36); BUN Creatinine Ratio 16.5 (6-22); Bilirubin Total 0.4 mg/dL (0.2-1.3); Blood Urea Nitrogen 14 mg/dL (7-17); Calcium 9.8 mg/dL (8.4-10.2); Carbon Dioxide 26 mmol/L (22-32); Chloride 104 mmol/L (98-107); Cholesterol 165 mg/dL (140-199); Estimated Glomerular Filt Rate > 60.0 mL/min (>60); Glucose 151 mg/dL (70-100); HDL Cholesterol 45 mg/dL (40-60); HEMOLYSIS < 15 (0-50); LDL Cholesterol Calculated 96 mg/dL (<100); Potassium 4.4 mmol/L (3.4-5.1); Sodium 139 mmol/L (137-145); Total Protein 7.3 g/dL (6.3-8.2); Triglycerides 121 mg/dL (35-150)
== END ==
PROVIDERS: PCP Physician Assistant; Referring Provider Physician Assistant; Visit Provider Physician Assistant
DX: R10.9 Unspecified abdominal pain (principal); E78.5 Hyperlipidemia, unspecified; I48.91 Unspecified atrial fibrillation; K75.81 Nonalcoholic steatohepatitis (NASH); R73.03 Prediabetes
CPT/HCPCS: 36415; 80053; 80061; 83036; 85025

== ENCOUNTER → 2020-01-11 11:10 | Outpatient (CLI) | payer OTHER, SELFPAY ==
[2018-06-23 10:46] VITALS: BMI 51.5
--- NOTE | 2020-01-11 | DI.US.S_ITS ---
PROCEDURE: US RENAL COMPLETE INDICATIONS: RT FLANK PAIN TECHNIQUE: Real-time scanning was performed of the kidneys and bladder, with image documentation. COMPARISON: None. FINDINGS: Kidneys: Kidneys are normal in size. Right kidney measures 11.3 cm long; left kidney measures 12.6 cm long. Right renal cortical thickness is 1.0 cm; left renal cortical thickness is 1.5 cm. Renal cortical echotexture is normal. No hydronephrosis or nephrolithiasis. No suspicious solid mass lesions. Bladder: Pre-void bladder volume is 414 mL. Post-void residual is 44 mL. Pre-void images demonstrate no intraluminal masses or stones. On pre-void images, both ureteral jets are noted with color Doppler interrogation. (Of note, ureteral jets may not be detectable in up to 25% of cases due to insufficient differences in specific gravity between ureteral and bladder urine). Miscellaneous: No free pelvic fluid. Note is made of diffuse hepatic fatty infiltration. IMPRESSION: 1. Normal ultrasound appearance of kidneys. No renal stone hydronephrosis. No findings to explain right flank pain. 2. A 44 mL post void residual. 3. Diffusely increased hepatic echotexture. This finding is most likely secondary to hepatic fatty infiltration although other hepatocellular disease may have a similar appearance. Recommend clinical correlation. Dictated by: Erma Sanders M.D. on 01/11/2020 at 16:56 Approved by: Erma Sanders M.D. on 01/11/2020 at 16:58
== END ==
PROVIDERS: PCP Physician Assistant; Referring Provider Physician Assistant; Visit Provider Physician Assistant
DX: R10.9 Unspecified abdominal pain (principal); K76.0 Fatty (change of) liver, not elsewhere classified
CPT/HCPCS: 76770

== ENCOUNTER → 2020-04-11 13:57 | Outpatient (CLI) | payer OTHER, SELFPAY ==
[2020-02-20 10:15] VITALS: BMI 51.5
--- NOTE | 2020-04-11 | DI.CT.S_ITS ---
PROCEDURE: CT ANGIO CHEST INDICATIONS: Paroxysmal atrial fibrillation TECHNIQUE: After the administration of intravenous contrast, 3 mm thick sections acquired from the pulmonary apices to the posterior costophrenic angles. 3-dimensional maximum intensity projection (MIP) coronal reformats were then acquired parallel to the pulmonary veins. For radiation dose reduction, the following was used: automated exposure control, adjustment of mA and/or kV according to patient size. COMPARISON: None. FINDINGS: Image quality: Excellent. Pulmonary veins: 4 pulmonary veins are identified. * Right superior pulmonary vein: 1.8 cm diameter, 4.6 cm from ostium to 1st order branch. * Right inferior pulmonary vein: 1.4 cm diameter, 1.8 cm from ostium to 1st order branch. * Left superior pulmonary vein: 2.1 cm diameter, 4.1 cm from ostium to 1st order branch. * Left inferior pulmonary vein: 2.1 cm diameter, 3.8 cm from ostium to 1st order branch. * Supernumerary pulmonary veins: none. Lungs and pleura: Lungs are clear. No pleural effusions or pneumothorax. Central and peripheral airways are patent. Mediastinum: Heart size is normal, without pericardial effusion. No mediastinal or hilar adenopathy. Thoracic aorta and pulmonary arteries are normal in caliber and enhancement. Esophagus is normal in caliber, without hiatal hernia. Bones and chest wall: No suspicious bony lesions. Ribs and thoracic spine appear intact throughout. No axillary or supraclavicular adenopathy. Thyroid gland appears normal where well seen no, only partially visualized. Abdomen: Visualized upper abdominal solid organs appear normal in the early arterial phase of enhancement. IMPRESSION: Pulmonary vein anatomy as discussed above, no pulmonary mass or evidence of pneumonia. Conventional cardiac chamber anatomy. Dictated by: Rc Eason M.D. on 04/11/2020 at 15:11 Approved by: Rc Eason M.D. on 04/11/2020 at 15:27
== END ==
PROVIDERS: PCP Physician Assistant; Referring Provider Internal Medicine Cardiovascular Disease; Visit Provider Internal Medicine Cardiovascular Disease
DX: I48.0 Paroxysmal atrial fibrillation (principal)
CPT/HCPCS: 71275; Q9967

== ENCOUNTER → 2020-08-22 | Outpatient (CLI) | payer OTHER, SELFPAY ==
[2020-02-20 10:15] VITALS: BMI 51.5
== END ==
PROVIDERS: PCP Physician Assistant; Referring Provider Internal Medicine; Visit Provider Internal Medicine
DX: Z23 Encounter for immunization (principal)
CPT/HCPCS: 90471; 90686

== ENCOUNTER → 2020-08-26 09:28 | Outpatient (CLI) | payer OTHER, SELFPAY ==
[2020-02-20 10:15] VITALS: BMI 51.5
[2020-08-26 10:48] LABS: Alanine Aminotransferase 61 IU/L (<35); Albumin 4.5 g/dL (3.5-5.0); Albumin Globulin Ratio 1.6 (1.0-2.8); Alkaline Phosphatase 114 U/L (38-126); Aspartate Aminotransferase 39 IU/L (14-36); BUN Creatinine Ratio 25.3 (6-22); Bilirubin Total 0.4 mg/dL (0.2-1.3); Blood Urea Nitrogen 19 mg/dL (7-17); Calcium 9.5 mg/dL (8.4-10.2); Carbon Dioxide 28 mmol/L (22-32); Chloride 104 mmol/L (98-107); Estimated Glomerular Filt Rate > 60.0 mL/min (>60); Globulin 2.9 g/dL (1.7-4.1); Glucose 109 mg/dL (70-100); HEMOLYSIS 23 (0-50); Potassium 4.3 mmol/L (3.4-5.1); Sodium 140 mmol/L (137-145); Total Protein 7.4 g/dL (6.3-8.2)
[2020-08-27 16:53] LABS: Add Manual Diff / Slide Review NO; Basophils Absolute Auto 0 /uL (0-100); Basophils Percent Auto 0.5 % (0-2); Eosinophils Absolute Auto 100 /uL (0-450); Eosinophils Percent Auto 1.3 % (2-4); Hematocrit 37.7 % (36-46); Hemoglobin 12.3 g/dL (12.0-16.0); Lymphocytes Absolute Auto 1900 /uL (1100-4500); Lymphocytes Percent Auto 25.6 % (25-40); Mean Corpuscular HGB Conc 32.5 % (30-36); Mean Corpuscular Hemoglobin 28.5 PG (26-34); Mean Corpuscular Volume 87.7 fL (80-100); Monocytes Absolute Auto 500 /uL (0-900); Monocytes Percent Auto 6.5 % (3-14); Neutrophils Absolute Auto 4900 /uL (1500-7000); Neutrophils Percent Auto 66.1 % (50-75); Platelet Count 317 X10^3/uL (150-400); Red Blood Cell Count 4.31 X10^6/uL (4.0-5.2); Red Cell Distribution Width 14.9 % (11.6-14.8); White Blood Cell Count 7.4 X10^3/uL (4.5-11.0)
[2020-08-27 17:09] LABS: Cholesterol 156 mg/dL (140-199); HDL Cholesterol 40 mg/dL (40-60); LDL Cholesterol Calculated 78 mg/dL (<100); Magnesium 2.3 mg/dL (1.6-2.3); Triglycerides 189 mg/dL (35-150)
[2020-08-27 17:12] LABS: Hemoglobin A1C% w Est Avg Glu 5.6 % (4.0-6.0)
[2020-08-27 17:41] LABS: TSH w/ Reflex to FT4 3.14 uIU/mL (0.47-4.68)
[2020-08-27 17:59] LABS: Vitamin B12 430 pg/mL (239-931)
== END ==
PROVIDERS: PCP Physician Assistant; Referring Provider Physician Assistant; Visit Provider Physician Assistant
DX: K75.81 Nonalcoholic steatohepatitis (NASH) (principal)
CPT/HCPCS: 36415; 80053; 80061; 82607; 83036; 83735; 84443; 85025

== ENCOUNTER → 2020-10-21 08:54 | Outpatient (CLI) | payer OTHER, SELFPAY ==
[2020-02-20 10:15] VITALS: BMI 51.5
[2020-10-21 10:52] LABS: Hemoglobin A1C% w Est Avg Glu 5.4 % (4.0-6.0)
[2020-10-21 11:01] LABS: Add Manual Diff / Slide Review NO; Basophils Absolute Auto 100 /uL (0-100); Basophils Percent Auto 0.8 % (0-2); Eosinophils Absolute Auto 100 /uL (0-450); Eosinophils Percent Auto 1.1 % (2-4); Hemoglobin 12.7 g/dL (12.0-16.0); Lymphocytes Absolute Auto 2000 /uL (1100-4500); Lymphocytes Percent Auto 24.6 % (25-40); Mean Corpuscular HGB Conc 34.4 % (30-36); Mean Corpuscular Hemoglobin 29.7 PG (26-34); Mean Corpuscular Volume 86.4 fL (80-100); Monocytes Absolute Auto 500 /uL (0-900); Monocytes Percent Auto 6.6 % (3-14); Neutrophils Absolute Auto 5400 /uL (1500-7000); Neutrophils Percent Auto 66.9 % (50-75); Platelet Count 297 X10^3/uL (150-400); Red Blood Cell Count 4.29 X10^6/uL (4.0-5.2); Red Cell Distribution Width 14.6 % (11.6-14.8)
[2020-10-21 11:10] LABS: INR 1.4 (0.9-1.3); Prothrombin Time 15.6 SECONDS (10.1-12.7)
[2020-10-21 11:13] LABS: PTT Partial Thromboplastin Tim 54 SECONDS (26.4-36.2)
[2020-10-21 11:17] LABS: Iron 71 ug/dL (37-170)
[2020-10-21 11:21] LABS: Alanine Aminotransferase 76 IU/L (<35); Albumin 4.5 g/dL (3.5-5.0); Albumin Globulin Ratio 1.4 (1.0-2.8); Alkaline Phosphatase 123 U/L (38-126); Aspartate Aminotransferase 37 IU/L (14-36); BUN Creatinine Ratio 19.8 (6-22); Bilirubin Total 0.4 mg/dL (0.2-1.3); Blood Urea Nitrogen 18 mg/dL (7-17); Calcium 9.6 mg/dL (8.4-10.2); Carbon Dioxide 29 mmol/L (22-32); Chloride 105 mmol/L (98-107); Cholesterol 168 mg/dL (140-199); Estimated Glomerular Filt Rate > 60.0 mL/min (>60); Globulin 3.2 g/dL (1.7-4.1); Glucose 103 mg/dL (70-100); HDL Cholesterol 48 mg/dL (40-60); HEMOLYSIS < 15 (0-50); LDL Cholesterol Calculated 90 mg/dL (<100); Sodium 139 mmol/L (137-145); Total Protein 7.7 g/dL (6.3-8.2); Triglycerides 149 mg/dL (35-150)
[2020-10-21 11:30] LABS: Total Iron Binding Capacity 408 ug/dL (265-497)
[2020-10-21 11:34] LABS: Vitamin D 25 Hydroxy (D3) 40.5 ng/mL (30.0-100.0)
[2020-10-21 11:36] LABS: Free T3, Triiodothyronine Free 3.13 pg/mL (2.77-5.27)
[2020-10-21 11:51] LABS: Thyroid Stimulating Hormone 3.25 uIU/mL (0.47-4.68)
[2020-10-21 12:24] LABS: Folate > 20.0 ng/mL (2.76-20.0); Vitamin B12 620 pg/mL (239-931)
== END ==
PROVIDERS: PCP Physician Assistant; Referring Provider Surgery; Visit Provider Surgery
DX: E46 Unspecified protein-calorie malnutrition (principal); E55.9 Vitamin D deficiency, unspecified; E63.9 Nutritional deficiency, unspecified; Z01.812 Encounter for preprocedural laboratory examination
CPT/HCPCS: 36415; 80053; 80061; 82306; 82607; 82746; 83036; 83540; 83550; 84425; 84443; 84481; 85025; 85610; 85730

== ENCOUNTER → 2020-10-31 10:20 | Outpatient (CLI) | payer OTHER, SELFPAY ==
[2020-02-20 10:15] VITALS: BMI 51.5
[2020-10-31] MEDS: COVID-19 VACC(MODERNA-1)/PF 100 MCG/0.5 ML VIAL IM (10:26)
== END ==
PROVIDERS: PCP Physician Assistant; Visit Provider Internal Medicine
DX: Z23 Encounter for immunization (principal)
CPT/HCPCS: 0011A; 91301

== ENCOUNTER → 2020-11-27 11:13 | Outpatient (CLI) | payer OTHER, SELFPAY ==
[2020-02-20 10:15] VITALS: BMI 51.5
[2020-11-27] MEDS: COVID-19 VACC #2, MRNA(MOD) 100 MCG/0.5 ML VIAL IM (11:15)
== END ==
PROVIDERS: PCP Physician Assistant; Visit Provider Internal Medicine
DX: Z23 Encounter for immunization (principal)
CPT/HCPCS: 0012A; 91301

== ENCOUNTER → 2021-05-30 08:11 | Outpatient (CLI) | payer OTHER, SELFPAY ==
[2020-02-20 10:15] VITALS: BMI 51.5
[2021-05-30 08:55] LABS: INR 1.5 (0.9-1.3); Prothrombin Time 16.5 SECONDS (10.1-12.7)
[2021-05-30 08:57] LABS: Add Manual Diff / Slide Review NO; Basophils Absolute Auto 100 /uL (0-100); Basophils Percent Auto 0.9 % (0-2); Eosinophils Absolute Auto 100 /uL (0-450); Eosinophils Percent Auto 1.6 % (2-4); Hematocrit 34.8 % (36-46); Hemoglobin 11.7 g/dL (12.0-16.0); Lymphocytes Absolute Auto 1600 /uL (1100-4500); Mean Corpuscular HGB Conc 33.6 % (30-36); Mean Corpuscular Volume 86.4 fL (80-100); Monocytes Absolute Auto 400 /uL (0-900); Monocytes Percent Auto 6.2 % (3-14); Neutrophils Absolute Auto 4900 /uL (1500-7000); Neutrophils Percent Auto 68.3 % (50-75); Platelet Count 242 X10^3/uL (150-400); Red Blood Cell Count 4.02 X10^6/uL (4.0-5.2); Red Cell Distribution Width 14.4 % (11.6-14.8); White Blood Cell Count 7.1 X10^3/uL (4.5-11.0)
[2021-05-30 08:58] LABS: PTT Partial Thromboplastin Tim 57 SECONDS (26.4-36.2)
[2021-05-30 08:59] LABS: Hemoglobin A1C% w Est Avg Glu 5.2 % (4.0-6.0)
[2021-05-30 09:09] LABS: Alanine Aminotransferase 83 IU/L (<35); Albumin Globulin Ratio 1.3 (1.0-2.8); Alkaline Phosphatase 105 U/L (38-126); Aspartate Aminotransferase 42 IU/L (14-36); BUN Creatinine Ratio 20.2 (6-22); Bilirubin Total 0.3 mg/dL (0.2-1.3); Blood Urea Nitrogen 17 mg/dL (7-17); Calcium 9.5 mg/dL (8.4-10.2); Carbon Dioxide 29 mmol/L (22-32); Chloride 105 mmol/L (98-107); Cholesterol 157 mg/dL (140-199); Estimated Glomerular Filt Rate > 60.0 mL/min (>60); Glucose 107 mg/dL (70-100); HDL Cholesterol 57 mg/dL (40-60); HEMOLYSIS < 15 (0-50); Iron 54 ug/dL (37-170); LDL Cholesterol Calculated 68 mg/dL (<100); Potassium 4.5 mmol/L (3.4-5.1); Sodium 140 mmol/L (137-145); Triglycerides 158 mg/dL (35-150)
[2021-05-30 09:21] LABS: Vitamin D 25 Hydroxy (D3) 24.8 ng/mL (30.0-100.0)
[2021-05-30 09:22] LABS: Free T3, Triiodothyronine Free 2.81 pg/mL (2.77-5.27)
[2021-05-30 09:36] LABS: Thyroid Stimulating Hormone 3.22 uIU/mL (0.47-4.68)
[2021-05-30 09:42] LABS: Ferritin 26 ng/mL (11-264)
[2021-05-30 10:12] LABS: Folate > 20.0 ng/mL (2.76-20.0); Vitamin B12 430 pg/mL (239-931)
[2021-05-30 11:41] LABS: Percent Iron Saturation 15 % (15-50); Total Iron Binding Capacity 355 ug/dL (265-497)
[2021-06-03 09:59] LABS: Vitamin B1 105.3 nmol/L (66.5-200.0)
== END ==
PROVIDERS: PCP Physician Assistant; Referring Provider Surgery; Visit Provider Surgery
DX: E46 Unspecified protein-calorie malnutrition (principal); E55.9 Vitamin D deficiency, unspecified; E63.9 Nutritional deficiency, unspecified; Z01.812 Encounter for preprocedural laboratory examination
CPT/HCPCS: 36415; 80053; 80061; 82306; 82607; 82728; 82746; 83036; 83540; 83550; 84425; 84443; 84481; 85025; 85610; 85730

== ENCOUNTER → 2021-06-09 09:02 | Outpatient (CLI) | payer OTHER, SELFPAY ==
[2020-02-20 10:15] VITALS: BMI 51.5
[2021-06-09 11:12] LABS: COVID-19 CEPHEID PCR (VTM/NP) Negative (Negative)
== END ==
PROVIDERS: PCP Physician Assistant; Visit Provider Nurse Practitioner
DX: Z20.822 Contact with and (suspected) exposure to COVID-19 (principal)
CPT/HCPCS: U0003

== ENCOUNTER → 2021-08-27 16:04 | Outpatient (CLI) | payer OTHER, SELFPAY ==
[2020-02-20 10:15] VITALS: BMI 51.5
--- NOTE | 2021-08-27 16:05 | DI.MG.S_ITS ---
BILATERAL DIGITAL SCREENING MAMMOGRAM 3D/2D WITH CAD: 08/27/2021 Comparison is made to exams dated: 10/08/2018 mammogram - [facility], 07/21/2013 mammogram, and 12/31/2011 mammogram - [facility]. There are scattered fibroglandular elements in both breasts. Current study was also evaluated with a Computer Aided Detection (CAD) system. No significant masses, calcifications, or other findings are seen in either breast. There has been no significant interval change. IMPRESSION: NEGATIVE There is no mammographic evidence of malignancy. A 1 year screening mammogram is recommended. This exam was interpreted at Station ID: [id number]. NOTE: For mammograms, a report in lay terms will be sent to the patient. Approximately 15% of breast malignancies will not be visualized mammographically. In the management of a palpable breast mass, a negative mammogram must not discourage biopsy of a clinically suspicious lesion. Electronically Signed By: Loy Renteria M.D. [facility]/darius:08/27/2021 16:37:32 letter sent: Normal Exam ACR BI-RADS Category 1: Negative 3341F
== END ==
PROVIDERS: PCP Physician Assistant; Referring Provider Physician Assistant; Visit Provider Physician Assistant
DX: Z12.31 Encounter for screening mammogram for malignant neoplasm of breast (principal)
CPT/HCPCS: 77063; 77067

== ENCOUNTER → 2021-09-04 17:22 | Outpatient (CLI) | payer OTHER, SELFPAY ==
[2021-09-03 10:48] VITALS: BMI 51.5
== END ==
PROVIDERS: PCP Physician Assistant; Referring Provider Internal Medicine; Visit Provider Internal Medicine
DX: Z23 Encounter for immunization (principal)
CPT/HCPCS: 90471; 90686

== ENCOUNTER → 2021-09-05 07:57 | Outpatient (CLI) | payer OTHER, SELFPAY ==
[2021-09-03 10:48] VITALS: BMI 51.5
[2021-09-05] MEDS: COVID-19 VACC #3, MRNA(MOD) 50 MCG/0.25 ML VIAL IM (08:07)
== END ==
PROVIDERS: PCP Physician Assistant; Visit Provider Internal Medicine
DX: Z23 Encounter for immunization (principal)
CPT/HCPCS: 0013A; 91301

== ENCOUNTER → 2021-09-17 10:15 | Outpatient (CLI) | payer OTHER, SELFPAY ==
[2021-09-03 10:48] VITALS: BMI 51.5
[2021-09-17 11:15] LABS: INR 1.5 (0.9-1.3); Prothrombin Time 16.8 SECONDS (10.1-12.7)
[2021-09-17 11:18] LABS: PTT Partial Thromboplastin Tim 53 SECONDS (26.4-36.2)
== END ==
PROVIDERS: PCP Physician Assistant; Referring Provider Surgery; Visit Provider Surgery
DX: R79.1 Abnormal coagulation profile (principal); Z01.812 Encounter for preprocedural laboratory examination
CPT/HCPCS: 36415; 85610; 85730

== ENCOUNTER → 2021-09-19 09:18 | Outpatient (CLI) | payer OTHER, SELFPAY ==
[2021-09-03 10:48] VITALS: BMI 51.5
[2021-09-19 11:56] LABS: COVID19 -Nasal RAPID Negative (Negative)
== END ==
PROVIDERS: PCP Physician Assistant; Visit Provider Physician Assistant
DX: Z20.822 Contact with and (suspected) exposure to COVID-19 (principal)
CPT/HCPCS: 87635

== ENCOUNTER → 2021-11-27 09:09 | Outpatient (CLI) | payer OTHER, SELFPAY ==
[2021-09-03 10:48] VITALS: BMI 51.5
[2021-11-27 10:00] LABS: Hematocrit 31.7 % (36-46); Hemoglobin 10.8 g/dL (12.0-16.0); Mean Corpuscular Hemoglobin 29.3 PG (26-34); Mean Corpuscular Volume 86.4 fL (80-100); Platelet Count 247 X10^3/uL (150-400); Red Blood Cell Count 3.67 X10^6/uL (4.0-5.2); White Blood Cell Count 4.9 X10^3/uL (4.5-11.0)
[2021-11-27 10:40] LABS: Alanine Aminotransferase 42 IU/L (<35); Albumin 4.1 g/dL (3.5-5.0); Albumin Globulin Ratio 1.7 (1.0-2.8); Alkaline Phosphatase 125 U/L (38-126); Aspartate Aminotransferase 28 IU/L (14-36); BUN Creatinine Ratio 21.3 (6-22); Bilirubin Total 0.5 mg/dL (0.2-1.3); Blood Urea Nitrogen 17 mg/dL (7-17); Calcium 9.8 mg/dL (8.4-10.2); Carbon Dioxide 26 mmol/L (22-32); Chloride 110 mmol/L (98-107); Cholesterol 159 mg/dL (140-199); Estimated Glomerular Filt Rate > 60.0 mL/min (>60); Globulin 2.4 g/dL (1.7-4.1); Glucose 96 mg/dL (70-100); HDL Cholesterol 47 mg/dL (40-60); HEMOLYSIS < 15 (0-50); LDL Cholesterol Calculated 81 mg/dL (<100); Potassium 4.3 mmol/L (3.4-5.1); Sodium 141 mmol/L (137-145); Total Protein 6.5 g/dL (6.3-8.2); Triglycerides 154 mg/dL (35-150)
[2021-11-27 10:55] LABS: Vitamin D 25 Hydroxy (D3) 35.1 ng/mL (30.0-100.0)
== END ==
PROVIDERS: PCP Physician Assistant; Referring Provider Physician Assistant; Visit Provider Physician Assistant
DX: E55.9 Vitamin D deficiency, unspecified (principal); E78.5 Hyperlipidemia, unspecified; R79.89 Other specified abnormal findings of blood chemistry
CPT/HCPCS: 36415; 80053; 80061; 82306; 85027

== ENCOUNTER → 2021-12-12 10:44 | Outpatient (CLI) | payer OTHER, SELFPAY ==
[2021-09-03 10:48] VITALS: BMI 51.5
[2021-12-12 11:45] LABS: Add Manual Diff / Slide Review NO; Basophils Absolute Auto 0 /uL (0-100); Basophils Percent Auto 0.7 % (0-2); Eosinophils Absolute Auto 100 /uL (0-450); Eosinophils Percent Auto 1.3 % (2-4); Hematocrit 33.8 % (36-46); Hemoglobin 11.4 g/dL (12.0-16.0); Lymphocytes Absolute Auto 1500 /uL (1100-4500); Lymphocytes Percent Auto 28.4 % (25-40); Mean Corpuscular HGB Conc 33.7 % (30-36); Mean Corpuscular Hemoglobin 29.6 PG (26-34); Mean Corpuscular Volume 87.9 fL (80-100); Monocytes Absolute Auto 300 /uL (0-900); Monocytes Percent Auto 6.4 % (3-14); Neutrophils Absolute Auto 3400 /uL (1500-7000); Neutrophils Percent Auto 63.2 % (50-75); Platelet Count 287 X10^3/uL (150-400); Red Blood Cell Count 3.84 X10^6/uL (4.0-5.2); Red Cell Distribution Width 14.8 % (11.6-14.8); White Blood Cell Count 5.4 X10^3/uL (4.5-11.0)
[2021-12-12 12:17] LABS: HEMOLYSIS < 15 (0-50); Iron 41 ug/dL (37-170)
[2021-12-12 12:28] LABS: Percent Iron Saturation 13 % (15-50); Total Iron Binding Capacity 316 ug/dL (265-497); Transferrin 258 mg/dL (206-381)
[2021-12-12 12:52] LABS: Ferritin 72 ng/mL (11-264)
[2021-12-12 13:06] LABS: Vitamin B12 821 pg/mL (239-931)
[2021-12-12 15:16] LABS: HIV 1 & 2 Ab/Ag 4th Gen Combo NEGATIVE (NEGATIVE); Hep C Virus Ab w/Reflex Quant NEGATIVE s/c (NEGATIVE)
== END ==
PROVIDERS: PCP Physician Assistant; Referring Provider Physician Assistant; Visit Provider Physician Assistant
DX: Z11.4 Encounter for screening for human immunodeficiency virus [HIV]; Z11.59 Encounter for screening for other viral diseases; D64.9 Anemia, unspecified
CPT/HCPCS: 36415; 82607; 82728; 83540; 83550; 85025; 86803; 87389

== ENCOUNTER → 2022-03-23 08:52 | Outpatient (CLI) | payer OTHER, SELFPAY ==
[2021-09-03 10:48] VITALS: BMI 51.5
[2022-03-23 10:18] LABS: Add Manual Diff / Slide Review NO; Basophils Absolute Auto 0 /uL (0-100); Basophils Percent Auto 0.9 % (0-2); Eosinophils Absolute Auto 100 /uL (0-450); Eosinophils Percent Auto 1.4 % (2-4); Hematocrit 34.7 % (36-46); Hemoglobin 11.9 g/dL (12.0-16.0); Lymphocytes Absolute Auto 1400 /uL (1100-4500); Lymphocytes Percent Auto 26.9 % (25-40); Mean Corpuscular HGB Conc 34.3 % (30-36); Mean Corpuscular Hemoglobin 30.1 PG (26-34); Mean Corpuscular Volume 87.8 fL (80-100); Monocytes Absolute Auto 300 /uL (0-900); Monocytes Percent Auto 5.4 % (3-14); Neutrophils Absolute Auto 3400 /uL (1500-7000); Neutrophils Percent Auto 65.4 % (50-75); Platelet Count 229 X10^3/uL (150-400); Red Blood Cell Count 3.95 X10^6/uL (4.0-5.2); Red Cell Distribution Width 13.4 % (11.6-14.8); White Blood Cell Count 5.2 X10^3/uL (4.5-11.0)
[2022-03-23 11:07] LABS: Alanine Aminotransferase 38 IU/L (<35); Albumin 4.6 g/dL (3.5-5.0); Albumin Globulin Ratio 1.6 (1.0-2.8); Alkaline Phosphatase 97 U/L (38-126); Aspartate Aminotransferase 30 IU/L (14-36); Bilirubin Total 0.3 mg/dL (0.2-1.3); Blood Urea Nitrogen 25 mg/dL (7-17); Calcium 9.6 mg/dL (8.4-10.2); Carbon Dioxide 28 mmol/L (22-32); Chloride 107 mmol/L (98-107); Cholesterol 180 mg/dL (140-199); Estimated Glomerular Filt Rate > 60 mL/min (>60); Globulin 2.9 g/dL (1.7-4.1); Glucose 95 mg/dL (70-100); HDL Cholesterol 65 mg/dL (40-60); HEMOLYSIS < 15 (0-50); LDL Cholesterol Calculated 96 mg/dL (<100); Potassium 4.4 mmol/L (3.4-5.1); Sodium 140 mmol/L (137-145); Total Protein 7.5 g/dL (6.3-8.2); Triglycerides 97 mg/dL (35-150)
[2022-03-23 11:13] LABS: Iron 68 ug/dL (37-170)
[2022-03-23 11:22] LABS: Vitamin D 25 Hydroxy (D3) 40.6 ng/mL (30.0-100.0)
[2022-03-23 11:24] LABS: Percent Iron Saturation 19 % (15-50); Total Iron Binding Capacity 350 ug/dL (265-497)
[2022-03-23 11:41] LABS: Ferritin 33 ng/mL (11-264); Thyroid Stimulating Hormone 2.82 uIU/mL (0.47-4.68)
[2022-03-23 12:12] LABS: Folate > 20.0 ng/mL (2.76-20.0); Vitamin B12 810 pg/mL (239-931)
[2022-04-01 15:43] LABS: Vitamin B1 138.3 nmol/L (66.5-200.0)
== END ==
PROVIDERS: PCP Physician Assistant; Referring Provider Surgery; Visit Provider Surgery
DX: E63.9 Nutritional deficiency, unspecified (principal); K90.9 Intestinal malabsorption, unspecified; Z98.84 Bariatric surgery status
CPT/HCPCS: 36415; 80053; 80061; 82306; 82607; 82728; 82746; 83036; 83540; 83550; 84425; 84443; 85025

== ENCOUNTER → 2022-08-28 16:44 | Outpatient (CLI) | payer OTHER, SELFPAY ==
[2021-09-03 10:48] VITALS: BMI 51.5
== END ==
PROVIDERS: PCP Physician Assistant; Referring Provider Internal Medicine; Visit Provider Internal Medicine
DX: Z23 Encounter for immunization (principal)
CPT/HCPCS: 90471; 90686

== ENCOUNTER → 2022-08-31 14:46 | Outpatient (CLI) | payer OTHER, SELFPAY ==
[2021-09-03 10:48] VITALS: BMI 51.5
--- NOTE | 2022-08-31 | DI.MG.S_ITS ---
BILATERAL DIGITAL SCREENING MAMMOGRAM 3D/2D WITH CAD: 08/31/2022 CLINICAL: Routine screening. Comparison is made to exams dated: 08/27/2021 mammogram, 10/08/2018 mammogram - [facility], and 07/31/2013 mammogram - [facility]. There are scattered areas of fibroglandular density in both breasts (category b / 25%-50% glandular tissue). Current study was also evaluated with a Computer Aided Detection (CAD) system. No significant masses, calcifications, or other findings are seen in either breast. There has been no significant interval change. IMPRESSION: NEGATIVE There is no mammographic evidence of malignancy. A 1 year screening mammogram is recommended. Based on the Tyrer Cuzick model (a risk assessment model) the patient's lifetime risk is 6.5% and her 10 year risk is 2.3%. According to the ACR, ACS, and NCCN guidelines, an annual breast MRI exam along with mammogram is recommended if the patient's lifetime risk is 20% or greater. This exam was interpreted at Station ID: [id number]. NOTE: For mammograms, a report in lay terms will be sent to the patient. Approximately 15% of breast malignancies will not be visualized mammographically. In the management of a palpable breast mass, a negative mammogram must not discourage biopsy of a clinically suspicious lesion. Electronically Signed By: Ellie herrera/darius:09/01/2022 11:10:38 letter sent: Normal Exam ACR BI-RADS Category 1: Negative 3341F
== END ==
PROVIDERS: PCP Physician Assistant; Referring Provider Physician Assistant; Visit Provider Physician Assistant
DX: Z12.31 Encounter for screening mammogram for malignant neoplasm of breast (principal)
CPT/HCPCS: 77063; 77067

== ENCOUNTER → 2022-09-21 11:06 | Outpatient (CLI) | payer OTHER, SELFPAY ==
[2021-09-03 10:48] VITALS: BMI 51.5
[2022-09-21 11:50] LABS: Add Manual Diff / Slide Review NO; Basophils Absolute Auto 0 /uL (0-100); Basophils Percent Auto 0.8 % (0-2); Eosinophils Absolute Auto 100 /uL (0-450); Eosinophils Percent Auto 1.7 % (2-4); Hematocrit 31.4 % (36-46); Hemoglobin 10.8 g/dL (12.0-16.0); Lymphocytes Absolute Auto 1500 /uL (1100-4500); Lymphocytes Percent Auto 33.8 % (25-40); Mean Corpuscular HGB Conc 34.3 % (30-36); Mean Corpuscular Hemoglobin 30.9 PG (26-34); Monocytes Absolute Auto 300 /uL (0-900); Monocytes Percent Auto 6.3 % (3-14); Neutrophils Absolute Auto 2500 /uL (1500-7000); Neutrophils Percent Auto 57.4 % (50-75); Platelet Count 226 X10^3/uL (150-400); Red Blood Cell Count 3.49 X10^6/uL (4.0-5.2); Red Cell Distribution Width 12.8 % (11.6-14.8); White Blood Cell Count 4.4 X10^3/uL (4.5-11.0)
[2022-09-21 16:30] LABS: HEMOLYSIS < 15 (0-50)
[2022-09-21 16:40] LABS: Alanine Aminotransferase 97 IU/L (<35); Albumin 4.4 g/dL (3.5-5.0); Albumin Globulin Ratio 1.5 (1.0-2.8); Alkaline Phosphatase 103 U/L (38-126); Aspartate Aminotransferase 48 IU/L (14-36); BUN Creatinine Ratio 20.7 (6-22); Bilirubin Total 0.3 mg/dL (0.2-1.3); Blood Urea Nitrogen 24 mg/dL (7-17); Calcium 9.5 mg/dL (8.4-10.2); Carbon Dioxide 26 mmol/L (22-32); Chloride 105 mmol/L (98-107); Cholesterol 191 mg/dL (140-199); Estimated Glomerular Filt Rate 55 mL/min (>60); Glucose 85 mg/dL (70-100); HDL Cholesterol 58 mg/dL (40-60); LDL Cholesterol Calculated 109 mg/dL (<100); Potassium 4.5 mmol/L (3.4-5.1); Sodium 140 mmol/L (137-145); Total Protein 7.4 g/dL (6.3-8.2); Triglycerides 119 mg/dL (35-150)
[2022-09-21 17:02] LABS: Vitamin D 25 Hydroxy (D3) 35.1 ng/mL (30.0-100.0)
[2022-09-22 14:00] LABS: Iron 90 ug/dL (37-170)
[2022-09-22 14:11] LABS: Percent Iron Saturation 26 % (15-50); Total Iron Binding Capacity 346 ug/dL (265-497)
[2022-09-22 14:20] LABS: Ferritin 60 ng/mL (11-264)
[2022-09-22 14:52] LABS: Folate > 20.0 ng/mL (2.76-20.0); Vitamin B12 573 pg/mL (239-931)
[2022-09-22 15:15] LABS: Thyroid Stimulating Hormone 2.54 uIU/mL (0.47-4.68)
[2022-09-22 15:51] LABS: Hemoglobin A1C% w Est Avg Glu 4.7 % (4.0-6.0)
[2022-09-25 09:38] LABS: Vitamin B1 150.3 nmol/L (66.5-200.0)
== END ==
PROVIDERS: PCP Physician Assistant; Referring Provider Surgery; Visit Provider Surgery
DX: K90.9 Intestinal malabsorption, unspecified (principal); E63.9 Nutritional deficiency, unspecified; Z98.84 Bariatric surgery status
CPT/HCPCS: 36415; 80053; 80061; 82306; 82607; 82728; 82746; 83036; 83540; 83550; 84425; 84443; 85025

== ENCOUNTER → 2022-11-06 08:20 | Outpatient (CLI) | payer OTHER, SELFPAY ==
[2021-09-03 10:48] VITALS: BMI 51.5
[2022-11-06 09:07] LABS: Influenza A - CEPHEID Flu A NEGATIVE (NEGATIVE); Influenza B - CEPHEID Flu B NEGATIVE (NEGATIVE); Respiratory Syncytial Virus Negative (Negative)
[2022-11-06 09:23] LABS: COVID-19 CEPHEID 4-PLEX PCR Negative (Negative)
== END ==
PROVIDERS: PCP Physician Assistant; Visit Provider Student in an Organized Health Care Education/Training Program
DX: J06.9 Acute upper respiratory infection, unspecified (principal)
CPT/HCPCS: 0241U

== ENCOUNTER → 2023-04-20 08:37 | Outpatient (CLI) | payer OTHER, SELFPAY ==
[2021-09-03 10:48] VITALS: BMI 51.5
[2023-04-20 09:36] LABS: Add Manual Diff / Slide Review NO; Basophils Absolute Auto 0 /uL (0-100); Basophils Percent Auto 0.5 % (0-2); Eosinophils Absolute Auto 0 /uL (0-450); Eosinophils Percent Auto 0.8 % (2-4); Hematocrit 32.5 % (36-46); Hemoglobin 11.1 g/dL (12.0-16.0); Lymphocytes Absolute Auto 1200 /uL (1100-4500); Lymphocytes Percent Auto 25.1 % (25-40); Mean Corpuscular HGB Conc 34.2 % (30-36); Mean Corpuscular Hemoglobin 30.6 PG (26-34); Mean Corpuscular Volume 89.4 fL (80-100); Monocytes Absolute Auto 400 /uL (0-900); Monocytes Percent Auto 7.8 % (3-14); Neutrophils Absolute Auto 3200 /uL (1500-7000); Neutrophils Percent Auto 65.8 % (50-75); Platelet Count 201 X10^3/uL (150-400); Red Blood Cell Count 3.63 X10^6/uL (4.0-5.2); Red Cell Distribution Width 12.6 % (11.6-14.8); White Blood Cell Count 4.9 X10^3/uL (4.5-11.0)
[2023-04-20 10:11] LABS: HEMOLYSIS < 15 (0-50); Iron 79 ug/dL (37-170)
[2023-04-20 10:14] LABS: Alanine Aminotransferase 31 IU/L (<35); Albumin 4.4 g/dL (3.5-5.0); Albumin Globulin Ratio 1.7 (1.0-2.8); Alkaline Phosphatase 76 U/L (38-126); Aspartate Aminotransferase 25 IU/L (14-36); BUN Creatinine Ratio 19.4 (6-22); Bilirubin Total 0.3 mg/dL (0.2-1.3); Blood Urea Nitrogen 27 mg/dL (7-17); Calcium 9.7 mg/dL (8.4-10.2); Carbon Dioxide 26 mmol/L (22-32); Chloride 105 mmol/L (98-107); Cholesterol 186 mg/dL (140-199); Estimated Glomerular Filt Rate 44 mL/min (>60); Globulin 2.6 g/dL (1.7-4.1); Glucose 83 mg/dL (70-100); HDL Cholesterol 66 mg/dL (40-60); HEMOLYSIS < 15 (0-50); LDL Cholesterol Calculated 100 mg/dL (<100); Potassium 4.4 mmol/L (3.4-5.1); Sodium 140 mmol/L (137-145); Triglycerides 100 mg/dL (35-150)
[2023-04-20 10:23] LABS: Percent Iron Saturation 24 % (15-50); Total Iron Binding Capacity 333 ug/dL (265-497); Transferrin 242 mg/dL (206-381)
[2023-04-20 10:42] LABS: TSH w/ Reflex to FT4 3.27 uIU/mL (0.47-4.68)
[2023-04-20 10:47] LABS: Ferritin 59 ng/mL (11-264)
[2023-04-20 11:02] LABS: Vitamin B12 969 pg/mL (239-931)
[2023-04-20 14:28] LABS: Creatinine Urine Random 121.6 mg/dL
[2023-04-20 14:30] LABS: Microalbumi Creatinin Ratio Ur 4.9 ug/mg CR (<30); Microalbumin Urine Random 0.6 mg/dL (0-1.6)
[2023-04-21 11:16] LABS: Labcorp Hemoglobin (Hb) A1c 5.2 % (4.8-5.6)
== END ==
PROVIDERS: PCP Family Medicine; Referring Provider Family Medicine; Visit Provider Family Medicine
DX: E66.01 Morbid (severe) obesity due to excess calories (principal); F41.9 Anxiety disorder, unspecified; F33.1 Major depressive disorder, recurrent, moderate; F51.01 Primary insomnia; Z68.43 Body mass index [BMI] 50.0-59.9, adult; Z98.84 Bariatric surgery status; Z98.890 Other specified postprocedural states; I48.91 Unspecified atrial fibrillation
CPT/HCPCS: 36415; 80053; 80061; 82043; 82570; 82607; 82728; 83036; 83540; 83550; 84443; 85025

== ENCOUNTER → 2023-06-21 10:53 | Outpatient (CLI) | payer OTHER, SELFPAY ==
[2021-09-03 10:48] VITALS: BMI 51.5
[2023-06-21 12:34] LABS: Alanine Aminotransferase 48 IU/L (<35); Albumin 4.5 g/dL (3.5-5.0); Albumin Globulin Ratio 1.7 (1.0-2.8); Alkaline Phosphatase 81 U/L (38-126); Aspartate Aminotransferase 32 IU/L (14-36); BUN Creatinine Ratio 15.2 (6-22); Bilirubin Total 0.4 mg/dL (0.2-1.3); Blood Urea Nitrogen 21 mg/dL (7-17); Calcium 9.6 mg/dL (8.4-10.2); Carbon Dioxide 22 mmol/L (22-32); Chloride 106 mmol/L (98-107); Estimated Glomerular Filt Rate 44 mL/min (>60); Globulin 2.6 g/dL (1.7-4.1); Glucose 76 mg/dL (70-100); HEMOLYSIS < 15 (0-50); Potassium 4.9 mmol/L (3.4-5.1); Sodium 138 mmol/L (137-145); Total Protein 7.1 g/dL (6.3-8.2)
== END ==
PROVIDERS: PCP Family Medicine; Referring Provider Family Medicine; Visit Provider Family Medicine
DX: R89.9 Unspecified abnormal finding in specimens from other organs, systems and tissues (principal)
CPT/HCPCS: 36415; 80053

== ENCOUNTER → 2023-06-24 08:49 | Outpatient (CLI) | payer OTHER, SELFPAY ==
[2021-09-03 10:48] VITALS: BMI 51.5
--- NOTE | 2023-06-24 08:50 | DI.US.S_ITS ---
PROCEDURE: US RENAL COMPLETE INDICATIONS: CKD TECHNIQUE: Real-time scanning was performed of the kidneys and bladder, with image documentation. COMPARISON: [facility], , RENAL COMPLETE, 01/11/2020, 11:16. FINDINGS: Kidneys: Kidneys are normal in size. Right kidney measures 10.2 cm long; left kidney measures 9.5 cm long. Right renal cortical thickness is 1.1 cm; left renal cortical thickness is 1.1 cm. Renal cortical echotexture is normal. No hydronephrosis or nephrolithiasis. No suspicious solid mass lesions. Bladder: Pre-void bladder volume is 9.5 mL. Post-void residual is 0 mL. Pre-void images demonstrate no intraluminal masses or stones. On pre-void images, no ureteral jets are noted with color Doppler interrogation. (Of note, ureteral jets may not be detectable in up to 25% of cases due to insufficient differences in specific gravity between ureteral and bladder urine). Miscellaneous: No free pelvic fluid. IMPRESSION: Normal size kidneys with no evidence of hydronephrosis. Dictated by: Swapnil Farr M.D. on 06/24/2023 at 14:06 Approved by: Swapnil Farr M.D. on 06/24/2023 at 14:08
== END ==
PROVIDERS: PCP Family Medicine; Referring Provider Family Medicine; Visit Provider Family Medicine
DX: R79.89 Other specified abnormal findings of blood chemistry (principal); D64.9 Anemia, unspecified
CPT/HCPCS: 76770

== ENCOUNTER → 2023-06-29 14:28 | Outpatient (CLI) | payer OTHER, SELFPAY ==
[2021-09-03 10:48] VITALS: BMI 51.5
[2023-06-29 15:14] LABS: Add Manual Diff / Slide Review NO; Basophils Absolute Auto 0 /uL (0-100); Basophils Percent Auto 0.4 % (0-2); Eosinophils Absolute Auto 0 /uL (0-450); Eosinophils Percent Auto 0.5 % (2-4); Hematocrit 30.6 % (36-46); Hemoglobin 10.7 g/dL (12.0-16.0); Lymphocytes Absolute Auto 1600 /uL (1100-4500); Lymphocytes Percent Auto 29.9 % (25-40); Mean Corpuscular HGB Conc 35.1 % (30-36); Mean Corpuscular Hemoglobin 30.7 PG (26-34); Mean Corpuscular Volume 87.6 fL (80-100); Monocytes Absolute Auto 400 /uL (0-900); Neutrophils Absolute Auto 3400 /uL (1500-7000); Neutrophils Percent Auto 62.2 % (50-75); Platelet Count 231 X10^3/uL (150-400); Red Blood Cell Count 3.49 X10^6/uL (4.0-5.2); Red Cell Distribution Width 13.1 % (11.6-14.8); White Blood Cell Count 5.4 X10^3/uL (4.5-11.0)
[2023-06-29 15:46] LABS: Alanine Aminotransferase 34 IU/L (<35); Albumin 4.2 g/dL (3.5-5.0); Albumin Globulin Ratio 1.8 (1.0-2.8); Alkaline Phosphatase 68 U/L (38-126); Aspartate Aminotransferase 26 IU/L (14-36); BUN Creatinine Ratio 19.2 (6-22); Bilirubin Total 0.3 mg/dL (0.2-1.3); Blood Urea Nitrogen 25 mg/dL (7-17); Calcium 9.1 mg/dL (8.4-10.2); Carbon Dioxide 23 mmol/L (22-32); Chloride 105 mmol/L (98-107); Estimated Glomerular Filt Rate 48 mL/min (>60); Globulin 2.4 g/dL (1.7-4.1); Glucose 75 mg/dL (70-100); HEMOLYSIS < 15 (0-50); Magnesium 2.2 mg/dL (1.6-2.3); Potassium 4.2 mmol/L (3.4-5.1); Sodium 137 mmol/L (137-145); Total Protein 6.6 g/dL (6.3-8.2)
[2023-07-01 14:18] LABS: Albumin 3.8 g/dL (2.9-4.4); Alpha-1-Globulin 0.2 g/dL (0.0-0.4); Alpha-2-Globulin 0.7 g/dL (0.4-1.0); Gamma Globulin 0.8 g/dL (0.4-1.8); Globulin Total 2.6 g/dL (2.2-3.9); Protein, Total 6.4 g/dL (6.0-8.5)
[2023-07-02 14:58] LABS: Alpha-1 Globulin, Ur 5.6 % (.); Beta Globulin, Ur 45.6 % (.); Gamma Globulin, Ur 14.6 % (.); M-Spike % Not Observed % (Not Observed); Urine Total Protein 8.2 mg/dL (Not Estab.)
== END ==
PROVIDERS: PCP Family Medicine; Referring Provider Family Medicine; Visit Provider Family Medicine
DX: D64.9 Anemia, unspecified (principal); R79.89 Other specified abnormal findings of blood chemistry; I48.91 Unspecified atrial fibrillation; Z79.899 Other long term (current) drug therapy; Z98.84 Bariatric surgery status
CPT/HCPCS: 36415; 80053; 83735; 84155; 84156; 84165; 84166; 85025

== ENCOUNTER → 2023-08-17 05:44 | Outpatient (CLI) | payer BC, SELFPAY ==
[2021-09-03 10:48] VITALS: BMI 51.5
== END ==
PROVIDERS: PCP Family Medicine; Referring Provider Family Medicine; Visit Provider Family Medicine
DX: Z23 Encounter for immunization (principal)
CPT/HCPCS: 90471; 90686

== ENCOUNTER → 2023-08-31 13:10 | Outpatient (CLI) | payer BC, SELFPAY ==
[2021-09-03 10:48] VITALS: BMI 51.5
--- NOTE | 2023-08-31 13:12 | DI.MG.S_ITS ---
BILATERAL DIGITAL SCREENING MAMMOGRAM 3D/2D WITH CAD: 08/31/2023 CLINICAL: Routine screening. Comparison is made to exams dated: 08/31/2022 mammogram, 08/27/2021 mammogram, and 10/08/2018 mammogram - [facility]. There are scattered areas of fibroglandular density in both breasts (category b / 25%-50% glandular tissue). Current study was also evaluated with a Computer Aided Detection (CAD) system. There is a stable benign focal asymmetry in the right breast. No significant masses, calcifications, or other findings are seen in either breast. There has been no significant interval change. IMPRESSION: BENIGN There is no mammographic evidence of malignancy. A 1 year screening mammogram is recommended. Based on the Tyrer Cuzick model (a risk assessment model) the patient's lifetime risk is 6.3% and her 10 year risk is 2.4%. According to the ACR, ACS, and NCCN guidelines, an annual breast MRI exam along with mammogram is recommended if the patient's lifetime risk is 20% or greater. This exam was interpreted at Station ID: [id number]. NOTE: For mammograms, a report in lay terms will be sent to the patient. Approximately 15% of breast malignancies will not be visualized mammographically. In the management of a palpable breast mass, a negative mammogram must not discourage biopsy of a clinically suspicious lesion. Electronically Signed By: Jeremias samson/darius:08/31/2023 16:04:08 letter sent: Normal Exam ACR BI-RADS Category 2: Benign Finding(s) 3342F
== END ==
PROVIDERS: PCP Family Medicine; Referring Provider Family Medicine; Visit Provider Family Medicine
DX: Z12.31 Encounter for screening mammogram for malignant neoplasm of breast (principal)
CPT/HCPCS: 77063; 77067

== ENCOUNTER → 2023-09-30 10:54 | Outpatient (CLI) | payer SELFPAY ==
[2021-09-03 10:48] VITALS: BMI 51.5
[2023-09-30 11:28] LABS: Add Manual Diff / Slide Review NO; Basophils Absolute Auto 0 /uL (0-100); Basophils Percent Auto 0.8 % (0-2); Eosinophils Absolute Auto 0 /uL (0-450); Eosinophils Percent Auto 0.9 % (2-4); Hematocrit 30.4 % (36-46); Hemoglobin 10.6 g/dL (12.0-16.0); Lymphocytes Absolute Auto 1300 /uL (1100-4500); Lymphocytes Percent Auto 29.4 % (25-40); Mean Corpuscular HGB Conc 34.8 % (30-36); Mean Corpuscular Hemoglobin 31.1 PG (26-34); Mean Corpuscular Volume 89.3 fL (80-100); Monocytes Absolute Auto 300 /uL (0-900); Monocytes Percent Auto 8.1 % (3-14); Neutrophils Absolute Auto 2600 /uL (1500-7000); Neutrophils Percent Auto 60.8 % (50-75); Platelet Count 204 X10^3/uL (150-400); Red Blood Cell Count 3.41 X10^6/uL (4.0-5.2); Red Cell Distribution Width 13.1 % (11.6-14.8); White Blood Cell Count 4.3 X10^3/uL (4.5-11.0)
[2023-09-30 11:45] LABS: Alanine Aminotransferase 77 IU/L (<35); Albumin 4.3 g/dL (3.5-5.0); Albumin Globulin Ratio 1.5 (1.0-2.8); Alkaline Phosphatase 84 U/L (38-126); Aspartate Aminotransferase 55 IU/L (14-36); BUN Creatinine Ratio 27.2 (6-22); Bilirubin Total 0.5 mg/dL (0.2-1.3); Blood Urea Nitrogen 31 mg/dL (7-17); Calcium 9.6 mg/dL (8.4-10.2); Carbon Dioxide 24 mmol/L (22-32); Chloride 105 mmol/L (98-107); Estimated Glomerular Filt Rate 55 mL/min (>60); Globulin 2.9 g/dL (1.7-4.1); Glucose 87 mg/dL (70-100); HEMOLYSIS 19 (0-50); Potassium 4.9 mmol/L (3.4-5.1); Sodium 136 mmol/L (137-145); Total Protein 7.2 g/dL (6.3-8.2)
[2023-09-30 16:22] LABS: Creatinine Urine Random 63.2 mg/dL
[2023-09-30 16:36] LABS: Microalbumin Urine Random < 0.6 mg/dL (0-1.6)
== END ==
PROVIDERS: PCP Family Medicine; Referring Provider Family Medicine; Visit Provider Family Medicine
DX: D64.9 Anemia, unspecified (principal)
CPT/HCPCS: 36415; 80053; 82043; 82570; 85025

== ENCOUNTER → 2023-11-29 16:28 | Outpatient (CLI) | payer BC, SELFPAY ==
[2021-09-03 10:48] VITALS: BMI 51.5
[2023-11-29 17:10] LABS: Add Manual Diff / Slide Review NO; Basophils Absolute Auto 0 /uL (0-100); Basophils Percent Auto 0.6 % (0-2); Eosinophils Absolute Auto 100 /uL (0-450); Eosinophils Percent Auto 1.4 % (2-4); Hematocrit 30.3 % (36-46); Hemoglobin 10.3 g/dL (12.0-16.0); Lymphocytes Absolute Auto 1500 /uL (1100-4500); Lymphocytes Percent Auto 27.2 % (25-40); Mean Corpuscular HGB Conc 33.9 % (30-36); Mean Corpuscular Hemoglobin 30.4 PG (26-34); Mean Corpuscular Volume 89.8 fL (80-100); Monocytes Absolute Auto 400 /uL (0-900); Monocytes Percent Auto 6.5 % (3-14); Neutrophils Absolute Auto 3600 /uL (1500-7000); Neutrophils Percent Auto 64.3 % (50-75); Platelet Count 259 X10^3/uL (150-400); Red Blood Cell Count 3.38 X10^6/uL (4.0-5.2); Red Cell Distribution Width 13.6 % (11.6-14.8); White Blood Cell Count 5.7 X10^3/uL (4.5-11.0)
[2023-11-29 17:59] LABS: HEMOLYSIS < 15 (0-50); Iron 56 ug/dL (37-170)
[2023-11-29 18:01] LABS: Alanine Aminotransferase 49 IU/L (<35); Albumin 4.3 g/dL (3.5-5.0); Albumin Globulin Ratio 1.4 (1.0-2.8); Alkaline Phosphatase 110 U/L (38-126); Aspartate Aminotransferase 39 IU/L (14-36); BUN Creatinine Ratio 28.2 (6-22); Bilirubin Total 0.4 mg/dL (0.2-1.3); Blood Urea Nitrogen 35 mg/dL (7-17); Calcium 9.1 mg/dL (8.4-10.2); Carbon Dioxide 24 mmol/L (22-32); Chloride 104 mmol/L (98-107); Estimated Glomerular Filt Rate 50 mL/min (>60); Globulin 3.1 g/dL (1.7-4.1); Glucose 88 mg/dL (70-100); HEMOLYSIS < 15 (0-50); Potassium 4.6 mmol/L (3.4-5.1); Sodium 136 mmol/L (137-145); Total Protein 7.4 g/dL (6.3-8.2)
[2023-11-29 18:09] LABS: Percent Iron Saturation 16 % (15-50); Total Iron Binding Capacity 351 ug/dL (265-497); Transferrin 325 mg/dL (206-381)
[2023-11-29 18:15] LABS: Vitamin D 25 Hydroxy (D3) 42.9 ng/mL (30.0-100.0)
[2023-11-29 18:36] LABS: Ferritin 41 ng/mL (11-264)
== END ==
PROVIDERS: PCP Family Medicine; Referring Provider Family Medicine; Visit Provider Family Medicine
DX: I48.91 Unspecified atrial fibrillation (principal); F33.1 Major depressive disorder, recurrent, moderate; K76.9 Liver disease, unspecified; F41.9 Anxiety disorder, unspecified; Z98.890 Other specified postprocedural states; Z98.84 Bariatric surgery status
CPT/HCPCS: 36415; 80053; 82306; 82728; 83540; 83550; 85025

== ENCOUNTER → 2023-12-16 10:59 | Outpatient (CLI) | payer BC, SELFPAY ==
[2021-09-03 10:48] VITALS: BMI 51.5
[2023-12-16 12:19] LABS: INR 1.1 (0.9-1.3); Prothrombin Time 13.1 SECONDS (9.4-12.5)
[2023-12-16 18:40] LABS: Hepatitis B Surface Antigen NEGATIVE s/c (NEGATIVE)
[2023-12-17 03:19] LABS: Hepatitis A Antibody Total Negative (Negative)
[2023-12-17 04:09] LABS: Alpha 1 Anti Trypsin 139 mg/dL (101-187); Ceruloplasmin 26.1 mg/dL (19.0-39.0); Hepatitis B Core Antibody Negative (Negative)
[2023-12-18 05:59] LABS: HCV AB Non Reactive (Non Reactive); Hepatitis B Surf Ab Qualitativ Non Reactive (.)
[2023-12-22 16:08] LABS: ANA Screen, IFA Negative (.)
== END ==
PROVIDERS: PCP Family Medicine; Referring Provider Internal Medicine; Visit Provider Internal Medicine
DX: D50.0 Iron deficiency anemia secondary to blood loss (chronic) (principal); K76.0 Fatty (change of) liver, not elsewhere classified; R74.8 Abnormal levels of other serum enzymes
CPT/HCPCS: 36415; 82103; 82390; 85610; 86038; 86704; 86706; 86708; 86803; 87340

== ENCOUNTER 2024-02-02 11:48 | Day surgery (SDC) | payer BC, SELFPAY ==
[2021-09-03 10:48] VITALS: BMI 51.5
--- NOTE | 2024-02-02 | PATH_ITS ---
[facility] Accession Number: [id number] No. of containers..01 Tissue . 01 Material submitted: . small bowel - SMALL BOWEL BIOPSY . 01 Diagnosis: SMALL BOWEL, BIOPSY: Small bowel mucosa with no diagnostic abnormality. Negative for active inflammation, features of sprue, dysplasia, or malignancy. MRV 02/07/2024 1224 Local . 01 Electronically signed: . Ciera Shah MD, Pathologist NPI- [id number] . 01 Gross description: . SMALL BOWEL BIOPSY: Received in formalin is 1 fragment(s) of ferreira, soft tissue measuring 0.1 x 0.1 x 0.1 cm submitted entirely in 1 cassette(s) /PAMELA 02/03/2024 1838 Local . 01 Pathologist provided ICD-10: D50.0 . 01 CPT . 638411 Specimen Comment: A courtesy copy of this report has been sent to [phone] Performed at: 01 [facility] [address] [place] [address] [address], [place], [place] [id number] MD Dandy Schuler MD Phone: [phone]
[2024-02-02 12:08] VITALS: BP 120/78; PULSE 64; RESP 14; TEMP 36.1; O2SAT 100
--- NOTE | 2024-02-02 12:31 | P.HP_ITS ---
History of Present Illness History of Present Illness Date Patient Seen: 02/02/24 Chief complaint: EGD/Colonoscopy Narrative: Iron deficiency anemia worsening post gastric sleeve. Also possible history of colon polyps. FOR[facility]LY [facility], [facility] Medical History (Updated 04/28/23 @ 19:02 by Shani Quijano) Psoriasis Allergies Depression Shoulder pain Osteoporosis Post-menopausal History of urinary incontinence Liver disease GERD (gastroesophageal reflux disease) (~1991) Major depressive disorder, recurrent episode, moderate Personal history of colonic polyps Essential hypertension Atrial fibrillation with controlled ventricular response (~2019) Anxiety disorder Osteoarthritis involving multiple joints on both sides of body History of cholelithiasis Obstructive sleep apnea on CPAP (~2012) Morbid obesity with BMI of 50.0-59.9, adult Surgical History (Updated 04/28/23 @ 19:02 by Shani Quijano) Anesthesia H/O cardiac radiofrequency ablation (~2019) Status post bariatric surgery (~2020) History of laparoscopic appendectomy (~2017) History of colonoscopy (~12/02/18) Status post right rotator cuff repair (~1998) Status post total bilateral knee replacement (~2009) H/O gastroesophageal reflux (GERD) Status post laparoscopic Katerin fundoplication (~1993) Status post laparoscopic cholecystectomy Family History (Updated 04/28/23 @ 19:03 by Shani Quijano) Mother Arrhythmia Thyroid cancer Social History (Updated 01/25/19 @ 18:48 by KENROY Adam) marital status: details: judit Haddad, lives in [place] household members: spouse lives independently: Yes caregiver/support person: No housing: house occupational status: employed Smoking Status: Former smoker alcohol intake: current substance use type: does not use Meds Home Medications and Allergies Home Medications Medication Instructions Recorded Confirmed Type cetirizine 10 mg capsule (Zyrtec) 10 mg PO DAILY 06/21/18 02/02/24 History cholecalciferol (vitamin D3) 25 1,000 unit PO BID 06/21/18 02/02/24 History mcg (1,000 unit) tablet (Vitamin D3) Resmed AirSense 10 CPAP #1 ea 01/25/19 11/29/23 History calcium carbonate 600 mg calcium 600 mg PO BID 11/11/20 02/02/24 History (1,500 mg) tablet ondansetron 4 mg disintegrating 4 mg translingual 11/28/21 11/29/23 History tablet multivitamin 1 tab PO DAILY 01/27/22 02/02/24 History omeprazole 20 mg capsule,delayed 20 mg PO BID #180 caps 09/03/23 02/02/24 Rx release clonazepam 0.5 mg tablet (Klonopin) 0.5 mg PO BID PRN Severe Anxiety 10/08/23 02/02/24 Rx #20 tabs apixaban 5 mg tablet (Eliquis) 5 mg PO BID #180 tabs 10/14/23 02/02/24 Rx trazodone 100 mg tablet 100 mg PO DAILY #90 tabs 11/10/23 11/29/23 Rx venlafaxine 150 mg tablet,extended 300 mg (2 x 150 mg) PO QAM #180 11/23/23 02/02/24 Rx release 24 hr tabs zolpidem 10 mg tablet 10 mg PO BEDTIME Anxiety 11/29/23 02/02/24 History Allergies Allergy/AdvReac Type Severity Reaction Status Date / Time hydrocodone [HYDROCODONE] Allergy Unknown Swelling Verified 11/29/23 15:52 of Lip/Tongue/Throat sulfamethoxazole Allergy Unknown Swelling Verified 11/29/23 15:52 [From BACTRIM] of Lip/Tongue/Throat trimethoprim [From BACTRIM] Allergy Unknown Swelling Verified 11/29/23 15:52 of Lip/Tongue/Throat Exam Narrative Exam Narrative: Oropharynx free of lesions Chest clear to auscultation percussion Cardiac exam reveals no S3 or murmur Assessment & Plan Assessment & Plan narrative: Iron deficiency anemia need for follow-up EGD and colonoscopy. Risks, benefits, alternatives have been explained.
--- NOTE | 2024-02-02 12:32 | PM.OP.EC ---
Operative Date/Time/Diagnoses Date of procedure: 02/02/24 Pre-op diagnosis: See indication and findings Procedure & Clinicians Study performed: EGD and colonoscopy Indications: Iron deficiency anemia Surgeon: Bryn Gambino Procedure Notes Procedure in detail: After informed consent was obtained the patient was placed in left lateral decubitus position. The video upper scope was placed into the oropharynx and with the patient's help swallowed into the esophagus. The esophagus stomach and duodenum were carefully examined. On withdrawal retroflexed view the GE junction was performed. The scope was removed. The patient tolerated procedure well. Patient was then turned and the colonoscope substituted. This was placed the rectum slowly advanced cecum. On withdrawal mucosa was carefully examined. The scope was removed. The patient tolerated the procedure well. Blood loss none Complications none Sedation mac Findings EGD 1. Normal esophagus with normal squamocolumnar junction 2. Findings consistent with gastric sleeve. 3. Normal small bowel to 60 cm past apparent pylorus. Biopsies taken to rule out celiac Colonoscopy 1. Normal colonoscopy to cecum other than rare scattered diverticula in the sigmoid colon Patient should follow-up with Dr. Irizarry either by telephone or in person and continue to stay under current medications.
[2024-02-02] MEDS: LACTATED RINGERS 1,000 ML 42 ML IV (12:37)
[2024-02-02 13:38] VITALS: BP 126/55; PULSE 62; RESP 22; TEMP 36.8; O2SAT 94
[2024-02-02 13:43] VITALS: BP 119/57; PULSE 58; RESP 12; O2SAT 100
[2024-02-02 13:47] VITALS: BP 134/76; PULSE 53; RESP 12; O2SAT 100
[2024-02-02 13:53] VITALS: BP 136/76; PULSE 55; RESP 12; TEMP 36.7; O2SAT 100
== END 2024-02-02 14:14 | disposition home or self-care (01) ==
PROVIDERS: PCP Family Medicine; Referring Provider Internal Medicine Gastroenterology; Visit Provider Internal Medicine Gastroenterology
PROC: 0DJ08ZZ Inspection of Upper Intestinal Tract, Via Natural or Artificial Opening Endoscopic (ICD-10-PCS; CPT 43235; principal; 2024-02-02 14:00)
PROC: 0DJD8ZZ Inspection of Lower Intestinal Tract, Via Natural or Artificial Opening Endoscopic (ICD-10-PCS; CPT 45378; 2024-02-02 14:00)
DX: D50.8 Other iron deficiency anemias (principal); K57.30 Diverticulosis of large intestine without perforation or abscess without bleeding
CPT/HCPCS: 45380; 43235; J2704

== ENCOUNTER → 2024-02-27 14:11 | Outpatient (CLI) | payer BC, SELFPAY ==
[2021-09-03 10:48] VITALS: BMI 51.5
== END ==
PROVIDERS: PCP Family Medicine; Visit Provider Physician Assistant Medical
DX: R30.0 Dysuria (principal)
CPT/HCPCS: 87077; 87086; 87186

== ENCOUNTER 2024-04-03 18:32 | Emergency (ER) | payer BC, SELFPAY ==
[2021-09-03 10:48] VITALS: BMI 51.5
[2024-04-03 18:40] VITALS: BP 137/65; PULSE 66; RESP 16; TEMP 36.2; O2SAT 100; BMI 34.3
--- NOTE | 2024-04-03 18:45 | DI.RAD.S_ITS ---
PROCEDURE: XR KNEE LT 3V INDICATIONS: injury, open wound TECHNIQUE: 3 views of the knee were acquired. COMPARISON: None. FINDINGS: Bones: Status post total left knee arthroplasty with prosthetic elements in appropriate position. No acute osseous abnormality. No suspicious bony lesions. Soft tissues: No joint effusion. No suspicious soft tissue calcifications. There is marked soft tissue swelling and lucency in the anterior medial aspect of the left knee likely corresponding to site of wound. No radiodensity identified to suggest retained foreign body. IMPRESSION: Status post total left knee arthroplasty without evidence of hardware complication. Left anterior lateral soft tissue swelling and lucency consistent with wound. No radiodense foreign body identified. Approved by: Andressa Amos M.D.,Ph.D. on 04/03/2024 at 21:28
--- NOTE | 2024-04-03 21:43 | ED.WOUNDLAC ---
HPI - Wound/Laceration General Chief Complaint: Wound/Laceration Stated Complaint: Left leg injury Time Seen by Provider: 04/03/24 19:30 Source: patient Mode of arrival: Ambulatory History of Present Illness HPI narrative: Patient is a 58-year-old female is here for evaluation of a laceration to the front of her left knee. Patient reports that she was carrying a metal desk down some stairs when the test came back and hit her in the knee. She states her last tetanus shot was within the past 5 years. She reports no other injuries from the event. Related Data Home Medications Medication Instructions Recorded Confirmed cetirizine 10 mg capsule (Zyrtec) 10 mg PO DAILY 06/21/18 02/27/24 cholecalciferol (vitamin D3) 25 1,000 unit PO BID 06/21/18 02/27/24 mcg (1,000 unit) tablet (Vitamin D3) Resmed AirSense 10 CPAP #1 ea 01/25/19 02/27/24 calcium carbonate 600 mg calcium 600 mg PO BID 11/11/20 02/27/24 (1,500 mg) tablet ondansetron 4 mg disintegrating 4 mg translingual 11/28/21 02/27/24 tablet multivitamin 1 tab PO DAILY 01/27/22 02/27/24 Previous Rx's Medication Instructions Recorded clonazepam 0.5 mg tablet (Klonopin) 0.5 mg PO BID PRN Severe Anxiety 10/08/23 #20 tabs apixaban 5 mg tablet (Eliquis) 5 mg PO BID #180 tabs 10/14/23 trazodone 100 mg tablet 100 mg PO DAILY #90 tabs 11/10/23 venlafaxine 150 mg tablet,extended 300 mg (2 x 150 mg) PO QAM #180 11/23/23 release 24 hr tabs omeprazole 20 mg capsule,delayed 20 mg PO BID #180 caps 02/21/24 release zolpidem 10 mg tablet 10 mg PO BEDTIME PRN insomnia #60 03/20/24 tabs Allergies Allergy/AdvReac Type Severity Reaction Status Date / Time hydrocodone [HYDROCODONE] Allergy Unknown Swelling Verified 04/03/24 18:40 of Lip/Tongue/Throat sulfamethoxazole Allergy Unknown Swelling Verified 04/03/24 18:40 [From BACTRIM] of Lip/Tongue/Throat trimethoprim [From BACTRIM] Allergy Unknown Swelling Verified 04/03/24 18:40 of Lip/Tongue/Throat Review of Systems Constitutional Constitutional: Reports system reviewed and no additional complaints, except as documented Musculoskeletal Musculoskeletal: Reports system reviewed and no additional complaints, except as documented Integumentary/Breasts Skin/Breast: Reports system reviewed and no additional complaints, except as documented Hematologic/Lymphatic On Anticoagulants: No Patient History Medical History Psoriasis Allergies Depression Shoulder pain Osteoporosis Post-menopausal History of urinary incontinence Liver disease GERD (gastroesophageal reflux disease) (~1991) Major depressive disorder, recurrent episode, moderate Personal history of colonic polyps Essential hypertension Atrial fibrillation with controlled ventricular response (~2019) Anxiety disorder Osteoarthritis involving multiple joints on both sides of body History of cholelithiasis Obstructive sleep apnea on CPAP (~2012) Morbid obesity with BMI of 50.0-59.9, adult Surgical History (Updated 04/28/23 @ 19:02 by Shani Quijano) Anesthesia H/O cardiac radiofrequency ablation (~2019) Status post bariatric surgery (~2020) History of laparoscopic appendectomy (~2017) History of colonoscopy (~12/02/18) Status post right rotator cuff repair (~1998) Status post total bilateral knee replacement (~2009) H/O gastroesophageal reflux (GERD) Status post laparoscopic Katerin fundoplication (~1993) Status post laparoscopic cholecystectomy Family History (Updated 04/28/23 @ 19:03 by Shani Quijano) Mother Arrhythmia Thyroid cancer Social History marital status: details: judit Haddad, lives in [place] household members: spouse lives independently: Yes caregiver/support person: No housing: house occupational status: employed Smoking Status: Former smoker alcohol intake: current substance use type: does not use Smoking Status: Former smoker alcohol intake frequency: holidays/special occasions only Substance Use Type: does not use Exam Initial Vital Signs Initial Vital Signs: Vital Signs Temperature 97.2 F L 04/03/24 18:40 Pulse Rate 66 04/03/24 18:40 Respiratory Rate 16 04/03/24 18:40 Blood Pressure 137/65 04/03/24 18:40 Pulse Oximetry 100 04/03/24 18:40 Oxygen Delivery Method Room Air 06/03/24 18:40 Const General: cooperative and healthy appearing Skin Other: 4-5 cm linear laceration on the anterior portion of the left knee just inferior to the patella. Procedures Laceration Repair Laceration 1: Site: lower extremity Side (If applicable): left Size (cm): 5 Description: linear Depth: simple, single layer Local Anesthetic: lidocaine 1% and with epi Amount of anesthesia used (mL): 6 Pre-repair: wound explored, irrigated extensively and deep structures intact Skin layer closed with: nylon Skin layer suture size: 4-0 Number of sutures: 7 Technique: simple, interrupted Course Orders Ordered: Discontinued Medications Bacitracin (Bacitracin Oint 0.9 Gm Pckt) 1 applic TOP NOW ONE Stop: 04/03/24 22:16 Last Admin: 04/03/24 22:22 Dose: 1 applic Documented By: LYUBOV Vital Signs Vital signs: Vital Signs - 8 hr 04/03/24 22:24 Pulse Rate 60 Respiratory Rate 16 Blood Pressure 139/68 Pulse Oximetry 100 Oxygen Delivery Method Room Air MDM - Wound/Laceration Imaging Data Extremity x-ray #1: Radiologist's Impression: PROCEDURE: XR KNEE LT 3V INDICATIONS: injury, open wound TECHNIQUE: 3 views of the knee were acquired. COMPARISON: None. FINDINGS: Bones: Status post total left knee arthroplasty with prosthetic elements in appropriate position. No acute osseous abnormality. No suspicious bony lesions. Soft tissues: No joint effusion. No suspicious soft tissue calcifications. There is marked soft tissue swelling and lucency in the anterior medial aspect of the left knee likely corresponding to site of wound. No radiodensity identified to suggest retained foreign body. IMPRESSION: Status post total left knee arthroplasty without evidence of hardware complication. Left anterior lateral soft tissue swelling and lucency consistent with wound. No radiodense foreign body identified. [facility] Narrative Medical decision making narrative: X-ray shows no acute fractures. Patient does have a laceration in the anterior portion left knee that was closed as described above. Low suspicion for tendon injury. Will discharge patient home care instructions return precautions Discharge Plan Departure Patient Disposition: Home Clinical Impression: Laceration of knee Instructions: DI for Laceration Repair Activity Restrictions/Additional Instructions: The stitches do need to be removed in 7-10 days. You can go to the walk-in clinic or your primary doctor for this. Until then you can use topical antibiotic ointment. The elastic bandage just to remind you not to bend your knee excessively. You do not need to keep your knee completely in extension all the time. Return to the emergency department for new or worsening symptoms. Prescriptions: No Action calcium carbonate 600 mg calcium (1,500 mg) tablet 600 mg PO BID ondansetron 4 mg tablet,disintegrating 4 mg translingual Patient Comments: Take one tablet by mouth every four to six hours as needed for nausea and vomiting. multivitamin Tablet 1 tab PO DAILY clonazepam [Klonopin] 0.5 mg tablet 0.5 mg PO BID PRN (Reason: Severe Anxiety) Qty: 20 2RF Eliquis 5 mg tablet 5 mg PO BID Qty: 180 0RF Rx Instructions: Please cancel previous rx sent this morning, we want the quantity of #180 processed, please & thank you! trazodone 100 mg tablet 100 mg PO DAILY Qty: 90 1RF venlafaxine 150 mg tablet extended release 24hr 300 mg PO QAM Qty: 180 1RF omeprazole 20 mg capsule,delayed release(DR/EC) 20 mg PO BID Qty: 180 2RF zolpidem 10 mg tablet 10 mg PO BEDTIME PRN (Reason: insomnia) Qty: 60 2RF cholecalciferol (vitamin D3) [Vitamin D3] 1,000 unit Tablet 1,000 unit PO BID Zyrtec 10 mg Capsule 10 mg PO DAILY (DME) Resmed AirSense 10 CPAP Qty: 1 Dose Instruction: As directed Patient Comments: Pressure: 11-14 cmH2O DME: [facility] Rx Instructions: As directed Referrals: Carl Alexandra MD [Primary Care Provider] - Stand Alone Forms: Patient Portal/API
[2024-04-03] MEDS: BACITRACIN OINT 0.9 GM PCKT 1 APPLIC TOP (22:22)
[2024-04-03 22:24] VITALS: BP 139/68; PULSE 60; RESP 16; O2SAT 100
== END 2024-04-03 22:26 | disposition home or self-care (01) ==
PROVIDERS: Emergency Provider Emergency Medicine; PCP Family Medicine
DX: S81.012A Laceration without foreign body, left knee, initial encounter (principal); W22.8XXA Striking against or struck by other objects, initial encounter
CPT/HCPCS: 12002; 73562; 99283